=== PATIENT | male | born 1985 | race Caucasian/White ===

== ENCOUNTER 2016-09-16 02:17 | Emergency (ER) | payer OTHER ==
[2016-09-16 02:25] VITALS: BP 132/72
--- NOTE | 2016-09-16 02:47 | ED Physician Documentation ---
PD HPI FOCAL NEURO - Stated complaint Stated Complaint: DIZZINESS,NUMBNESS - Chief complaint Chief Complaint: General - History obtained from History obtained from: Patient - History of Present Illness Timing - onset: How many hours ago (1), Today Timing - details: Gradual onset (he had gotten out of work and was standing smoking cigarette and noted undulating numbness in left arm and both legs. He said he anxious about it and then started to feel that he was not able to get next breath well enough, so started breathing faster. He then started feeling dizzy/lightheaded, like he might pass out. He got ride to the ED. Improving enroute, though he says he still has some numbness feeling lower right leg. No feeling of weakness throughout the time.), Waxing and waning Severity of deficit: Moderate Weakness: No: Face, Arm, Hand, Leg, Foot, Right, Left, Other Numbness: Arm, Leg, Right, Left Associated symptoms: Headache (mild intermittent the past few weeks.) Contributing factors: negative: Anticoagulated, Vascular dz, Atrial fibrillation Similar symptoms before: No diagnosis (he says he has had occasional feeling of numbness left arm and left leg, not always together.) Recently seen: Not recently seen Review of Systems Constitutional: denies: Fever, Chills, Myalgias Nose: denies: Rhinorrhea / runny nose, Congestion Throat: denies: Sore throat Cardiac: denies: Chest pain / pressure, Palpitations Respiratory: denies: Dyspnea, Cough, Wheezing GI: denies: Nausea, Vomiting, Diarrhea Skin: denies: Rash, Lesions Neurologic: reports: Numbness. denies: Generalized weakness, Focal weakness, Near syncope, Confused, Altered mental status, Head injury PD PAST MEDICAL HISTORY - Past Medical History Past Medical History: Yes Cardiovascular: None Respiratory: None Neuro: None Endocrine/Autoimmune: Type 2 diabetes (had been on insulin when first Dx but off diabetes meds the past 8 months when had good labs in February without regular med use. ) Psych: Anxiety Other Past Medical History: born with one kidney only - Past Surgical History Past Surgical History: Yes General: Appendectomy - Present Medications Home Medications: Ambulatory Orders Medication Instructions Recorded Confirmed Potassium Chloride 10 meq PO DAILY #20 tablet.er 09/16/16 - Allergies Allergies/Adverse Reactions: Allergies Allergy/AdvReac Type Severity Reaction Status Date / Time cefaclor [From [facility]] Allergy Rash Verified 09/16/16 02:25 metformin Allergy Hives Verified 09/16/16 02:25 Penicillins Allergy Rash Verified 09/16/16 02:25 risperidone [From Risperdal] Allergy Unknown Verified 09/16/16 02:25 - Social History Does the pt smoke?: Yes Does the pt drink ETOH?: Yes Does the pt have substance abuse?: Yes Substance Use and Type: Marijuana - Immunizations Immunizations are current?: Yes - POLST Patient has POLST: No PD ED PE NORMAL - Vitals Vital signs reviewed: Yes - General General: 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, No acute distress, Well developed/nourished - HEENT HEENT: Atraumatic, Moist mucous membranes, Pharynx benign - Neck Neck: Supple, no meningeal sign, No adenopathy, No JVD, No bruit - Cardiac Cardiac: RRR, No murmur - Respiratory Respiratory: Clear bilaterally - Abdomen Abdomen: Soft, Non tender - Derm Derm: Normal color, Warm and dry - Extremities Extremities: No deformity, No tenderness to palpate, Normal ROM s pain, No edema , No calf tenderness / cord - Neuro Neuro: 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, 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, No motor deficit, No sensory deficit, Normal speech, Other - Psych Psych: Normal mood, Normal affect NIHSS - Level of Consciousness Level of consciousness: (0) Alert, Keenly responsive LOC Questions: (0) Answers both Q's correct LOC Commands: (0) Performs both correctly - Gaze Best Gaze: (0) Normal - Visual Visual: (0) No loss - Facial Palsy Facial Palsy: (0) Normal, symmetrical movement - Motor Arms (both separate) Motor Arm (right): (0) No drift Motor Arm (left): (0) No drift - Motor Legs (both separate) Motor Leg (right): (0) No drift Motor Leg (left): (0) No drift - Limb Ataxia Limb Ataxia: (0) Absent - Sensory Sensory: (0) Normal - Best Language Best Language: (0) No aphasia - Dysarthria Dysarthria: (0) Normal - Extinction and Inattention (formally neg Extinction and inattention: (0) No abnormality - Total Score/Results Total Score/Result: 0 Results - Vitals Vitals: Vital Signs - 24 hr 09/16/16 02:20 Temperature 37.3 C Heart Rate 63 Respiratory 20 Rate Blood Pressure 132/72 H O2 Saturation 99 Oxygen O2 Source Room air - Labs Labs: Laboratory Tests 09/16/16 09/16/16 09/16/16 02:31 03:24 03:24 WBC 8.5 RBC 4.55 L Hgb 14.5 Hct 43.1 MCV 94.9 H MCH 32.0 H MCHC 33.7 RDW 14.3 Plt Count 258 MPV 8.8 Neut # 5.6 Lymph # 1.9 [place] # 0.7 Eos # 0.2 Baso # 0.1 Absolute Nucleated RBC 0.00 Nucleated RBCs 0.0 Sodium 138 Potassium 3.3 L Chloride 103 Carbon Dioxide 26 Anion Gap 9.0 BUN 13 Creatinine 1.0 Estimated GFR (MDRD) 88 L Glucose 207 H POC Whole Bld Glucose 212 H Glycated Hemoglobin Estim Average Glucose Calcium 9.3 Magnesium 1.9 Total Bilirubin 0.4 AST 22 ALT 44 Alkaline Phosphatase 66 Total Protein 7.2 Albumin 4.4 Globulin 2.8 Albumin/Globulin Ratio 1.6 Lipase 25 09/16/16 03:24 WBC RBC Hgb Hct MCV MCH MCHC RDW Plt Count MPV Neut # Lymph # [place] # Eos # Baso # Absolute Nucleated RBC Nucleated RBCs Sodium Potassium Chloride Carbon Dioxide Anion Gap BUN Creatinine Estimated GFR (MDRD) Glucose POC Whole Bld Glucose Glycated Hemoglobin 7.0 H Estim Average Glucose 154 H Calcium Magnesium Total Bilirubin AST ALT Alkaline Phosphatase Total Protein Albumin Globulin Albumin/Globulin Ratio Lipase - Rads (name of study) head CT Radiology: Prelim report reviewed (no acute process seen) PD MEDICAL DECISION MAKING - ED course Complexity details: reviewed results, considered differential (his numbness in legs and left arm/hand along with dyspnea sound like hyperventilation episode. However he says he has had intermittent numbness left arm and leg, nonexertional. Did CT as screening, which was okay. His A1C is a bit high, but he says he will eat better (less good diet since moving few weeks ago too) and some exercise. I think the decision of back on meds or not can be deferred until obtains PMD locally. ), d/w patient Departure - Departure Disposition: 01 Home, Self Care Clinical Impression: Numbness Condition: Stable Record reviewed to determine appropriate education?: Yes Instructions: ED Paraesthesias, ED Exercises Lumbar Muscles Follow-Up: [facility] [Provider Group] [facility] [Provider Group] Prescriptions: Potassium Chloride 10 meq PO DAILY #20 tablet.er Comments: Your A1C is 7.0, which is a little high, but not terrible. Currently your Potassium is a bit low, which can associate with numbness and feeling of weakness as well. Add a potassium supplement daily for a week or two. Drink lots of fluids for good hydration. Your head CT appears normal. No signs of tumors, stroke, swelling. Some of the numbness in the leg could be from low back nerve impingement. Back stretching exercises might help. Follow up with PCP , call for an appt, and a new patient appt will likely take a month or two. Return if worse symptoms. Discharge Date/Time: 09/16/16 04:36
[2016-09-16 03:32] LABS: BASOPHILS # (AUTO) 0.1 10^3/uL (0.0-0.1); BASOPHILS % (AUTO) 0.8 %; EOSINOPHILS # (AUTO) 0.2 10^3/uL (0.0-0.7); EOSINOPHILS % (AUTO) 2.6 %; HCT - HEMATOCRIT 43.1 % (42.0-52.0); HGB - HEMOGLOBIN 14.5 g/dL (14.0-18.0); LYMPHOCYTES # (AUTO) 1.9 10^3/uL (1.5-3.5); LYMPHOCYTES % (AUTO) 21.9 %; MEAN CORPUSCULAR HGB CONC 33.7 g/dL (32.0-36.0); MEAN CORPUSCULAR VOLUME 94.9 fL (80.0-94.0); MEAN PLATELET VOLUME 8.8 fL (7.4-11.4); MONOCYTES # (AUTO) 0.7 10^3/uL (0.0-1.0); MONOCYTES % (AUTO) 8.6 %; NEUTROPHILS # (AUTO) 5.6 10^3/uL (1.5-6.6); NEUTROPHILS % (AUTO) 66.1 %; RED BLOOD COUNT 4.55 10^6/uL (4.70-6.10); RED CELL DISTRIBUTION WIDTH 14.3 % (12.0-15.0); UNCORRECTED WHITE BLOOD COUNT 8.5 x10^3/uL; WHITE BLOOD COUNT 8.5 x10^3/uL (4.8-10.8)
[2016-09-16 03:43] LABS: ALBUMIN/GLOBULIN RATIO 1.6 (1.0-2.2); BILIRUBIN,TOTAL 0.4 mg/dL (0.2-1.0); CALCIUM 9.3 mg/dL (8.5-10.3); MAGNESIUM 1.9 mg/dL (1.7-2.8); POTASSIUM 3.3 mmol/L (3.5-5.0); TOTAL PROTEIN 7.2 g/dL (6.7-8.2)
[2016-09-16 04:00] LABS: HEMOGLOBIN A1C 0.82 g/dL
--- NOTE | 2016-09-16 04:12 | CT Preliminary Report ---
Exam: CT Head W/O IMPRESSION: No acute or focal intracranial abnormality. [facility] SITE ID: [id number]
[2016-09-16] MEDS ORDERED: POTASSIUM BICARB 25 MEQ TABLET PO STA (04:15)
--- NOTE | 2016-09-16 04:15 | CT Report ---
EXAM: CT HEAD EXAM DATE: 09/16/2016 04:04 AM. CLINICAL HISTORY: Intermittent left arm/leg numbness. COMPARISON: None. TECHNIQUE: Multiaxial CT images were obtained from the foramen magnum to the vertex. IV contrast: Non e. Reformats: Coronal. In accordance with CT protocol optimization, one or more of the following dose reduction techniques w ere utilized for this exam: automated exposure control, adjustment of mA and/or KV based on patient s ize, or use of iterative reconstructive technique. FINDINGS: Parenchyma: No intraparenchymal hemorrhage. No evidence of mass, midline shift, or CT findings of inf arction. Miller-white differentiation is distinct. Extraaxial Spaces: Normal for age. No subdural or epidural collections identified. Ventricles: Asymmetry between the lateral ventricles, right is slightly larger than the left, felt to be within the range of normal. Sinuses: Mucosal thickening partially opacifies multiple ethmoid air cells bilaterally. Other visuali zed paranasal sinuses and mastoids are unremarkable. Bones: No evidence of fracture or calvarial defect. Other: None. IMPRESSION: No acute or focal intracranial abnormality. [facility] Referring Provider Line: [phone] SITE ID: [id number]
[2016-09-16] MEDS ORDERED: POTASSIUM BICARB 25 MEQ TABLET PO ONE (04:23)
== END 2016-09-16 04:36 | disposition home or self-care (01) ==
LOC: ED 02:17
DX: R20.0 Anesthesia of skin (principal); E11.8 Type 2 diabetes mellitus with unspecified complications; Z79.4 Long term (current) use of insulin; F17.200 Nicotine dependence, unspecified, uncomplicated; E87.6 Hypokalemia
CPT/HCPCS: 36415; 70450; 80053; 83036; 83690; 83735; 85025; 99283; 99284; A9270

== ENCOUNTER 2016-10-31 18:55 | Emergency (ER) | payer OTHER ==
[2016-10-31] MEDS ORDERED: predniSONE 20 MG TABLET PO STA (20:30)
[2016-10-31] MEDS ORDERED: IPRATROPIUM/ALBUTEROL 3 ML NEB INH STA (20:30)
--- NOTE | 2016-10-31 20:39 | XRAY Preliminary Report ---
Exam: XR Chest 2 View PA/LAT IMPRESSION: Normal 2-view chest radiography. [facility] SITE ID: [id number]
--- NOTE | 2016-10-31 20:41 | XRAY Report ---
EXAM: CHEST RADIOGRAPHY EXAM DATE: 10/31/2016 08:23 PM. CLINICAL HISTORY: Cough. Chest tightness for 3 days. COMPARISON: None. TECHNIQUE: 2 views. FINDINGS: Lungs/Pleura: No focal opacities evident. No pleural effusion. No pneumothorax. Normal volumes. Mediastinum: Heart and mediastinal contours are unremarkable. Other: No bony abnormality identified. IMPRESSION: Normal 2-view chest radiography. [facility] Referring Provider Line: [phone] SITE ID: [id number]
[2016-10-31] MEDS ORDERED: IPRATROPIUM/ALBUTEROL 3 ML NEB INH ONE (20:42)
[2016-10-31] MEDS ORDERED: predniSONE 20 MG TABLET ONE (20:50)
--- NOTE | 2016-10-31 21:01 | ED Physician Documentation ---
PD HPI URI - Stated complaint Stated Complaint: SOA - Chief complaint Chief Complaint: Resp - History obtained from History obtained from: Patient - History of Present Illness Timing - onset: Yesterday Timing duration: Days (2) Timing details: Gradual onset Pain level max: 5 Pain level now: 5 Associated symptoms: Nasal congestion, Rhinorrhea, Dry cough, Dyspnea, Other ( wheezing). No: Fever, Chills Contributing factors: Sick contact Improves by: Rest Worsened by: Activity, Breathing Similar symptoms before: Has not had sx before Recently seen: Not recently seen Review of Systems Constitutional: denies: Fever, Chills Throat: denies: Sore throat Respiratory: reports: Cough, Wheezing Skin: denies: Rash Musculoskeletal: denies: Neck pain, Back pain Neurologic: denies: Headache PD PAST MEDICAL HISTORY - Past Medical History Cardiovascular: None Respiratory: None Neuro: None Endocrine/Autoimmune: Type 2 diabetes Psych: Anxiety Other Past Medical History: born with one kidney - Past Surgical History Past Surgical History: Yes General: Appendectomy - Present Medications Home Medications: Ambulatory Orders Medication Instructions Recorded Confirmed Albuterol Sulf [Ventolin Hfa 2 puffs INH Q4HR PRN #1 inhaler 10/31/16 Inhaler] Prednisone 40 mg PO DAILY #10 tablet 10/31/16 - Allergies Allergies/Adverse Reactions: Allergies Allergy/AdvReac Type Severity Reaction Status Date / Time cefaclor [From Ceclor] Allergy Rash Verified 10/31/16 19:15 metformin Allergy Hives Verified 10/31/16 19:15 Penicillins Allergy Rash Verified 10/31/16 19:15 risperidone [From Risperdal] Allergy Unknown Verified 10/31/16 19:15 - Social History Does the pt smoke?: Yes Smoking Status: Current every day smoker Does the pt drink ETOH?: Yes Does the pt have substance abuse?: No - Immunizations Immunizations are current?: Yes - POLST Patient has POLST: No PD ED PE NORMAL - Vitals Vital signs reviewed: Yes - General General: 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, No acute distress - HEENT HEENT: Ears normal, Moist mucous membranes, Pharynx benign - Neck Neck: Supple, no meningeal sign - Cardiac Cardiac: RRR, Strong equal pulses - Respiratory Respiratory: No respiratory distress, Other (Mild decreased breath sounds bilaterally with occasional wheeze) - Abdomen Abdomen: Soft, Non tender, Non distended - Derm Derm: Warm and dry - Extremities Extremities: No edema, No calf tenderness / cord - Neuro Neuro: 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 - Psych Psych: Normal mood, Normal affect Results - Vitals Vitals: Oxygen O2 Source Room air - Rads (name of study) cxr Radiology: Prelim report reviewed, EMP read contemporaneously, See rad report ( Normal 2-view chest radiography. ) PD MEDICAL DECISION MAKING - ED course Complexity details: reviewed results, re-evaluated patient, considered differential, d/w patient ED course: Patient is a 31-year-old male who presents to the emergency department what appears to be a viral upper respiratory infection with wheezing. Feels better after nebulizer treatment. Will place on steroids and albuterol for home. No pneumonia. Will hold antibiotics. No fevers. No hypoxia. No respiratory distress. Patient counseled to quit smoking. Patient counseled regarding signs and symptoms for which I believe and urgent re-evaluation would be necessary. Patient with good understanding of and agreement to plan and is comfortable going home at this time This document was made in part using voice recognition software. While efforts are made to proofread this document, sound alike and grammatical errors may occur. Departure - Departure Disposition: 01 Home, Self Care Clinical Impression: Viral URI Condition: Good Instructions: ED URI Viral W Wheezing Follow-Up: your,doctor in 1 week [Other] Prescriptions: Albuterol Sulf [Ventolin Hfa Inhaler] 2 puffs INH Q4HR PRN #1 inhaler PRN Reason: Wheezing Prednisone 40 mg PO DAILY #10 tablet Comments: Return if you worsen. Use the inhaler as needed. Your blood pressure was elevated today on check in to the emergency department. This does not mean that you have hypertension, it is a common phenomenon to check into the emergency department and have elevated blood pressure. I recommend that you see your primary care physician within the week to have it rechecked when you're feeling better. Discharge Date/Time: 10/31/16 21:22
[2016-10-31 21:20] VITALS: BP 115/73
== END 2016-10-31 21:22 | disposition home or self-care (01) ==
LOC: ED 18:55
DX: J06.9 Acute upper respiratory infection, unspecified (principal); B97.89 Other viral agents as the cause of diseases classified elsewhere; R03.0 Elevated blood-pressure reading, without diagnosis of hypertension; E11.9 Type 2 diabetes mellitus without complications; Q60.0 Renal agenesis, unilateral; F17.200 Nicotine dependence, unspecified, uncomplicated
CPT/HCPCS: 71020; 94640; 94664; 99283; J7512; J7620

== ENCOUNTER 2016-11-06 02:33 | Outpatient (CLI) | payer OTHER | END 2016-11-06 02:34 | disposition critical access hospital (66) | LOC: EMS 02:33 | PROVIDERS: ATTEND Surgery | DX: R73.09 Other abnormal glucose (principal); R51 Headache; R25.2 Cramp and spasm | CPT/HCPCS: A0425; A0427 ==

== ENCOUNTER 2016-11-06 02:47 | Emergency (ER) | payer OTHER ==
--- NOTE | 2016-11-06 05:09 | ED Physician Documentation ---
History of Present Illness - Stated complaint Stated Complaint: ALVARES/FLUSH - Chief complaint Chief Complaint: General - History obtained from History obtained from: Patient - History of Present Illness Timing: Enter time (21:00), Today Pain level now: 0 Improved by: nothing Worsened by: no exacerbating factors - Additonal information Additional information: patient complains of chest pressure, feeling flush, generalize headache call on set 9 PM tonight while at home cooking dinner. Patient says this felt like his previous anxiety exacerbations, and that symptoms have completely resolved. Review of Systems Constitutional: reports: Reviewed and negative Cardiac: reports: Chest pain / pressure. denies: Palpitations Respiratory: reports: Reviewed and negative GI: reports: Reviewed and negative Musculoskeletal: reports: Reviewed and negative Neurologic: reports: Headache Psychiatric: reports: Anxiety PD PAST MEDICAL HISTORY - Past Medical History Past Medical History: Yes Cardiovascular: None Respiratory: None Neuro: None Endocrine/Autoimmune: Type 2 diabetes Psych: Anxiety - Past Surgical History Past Surgical History: Yes General: Appendectomy - Present Medications Home Medications: Ambulatory Orders Medication Instructions Recorded Confirmed Albuterol Sulf [Ventolin Hfa 2 puffs INH Q4HR PRN #1 inhaler 10/31/16 Inhaler] Prednisone 40 mg PO DAILY #10 tablet 10/31/16 LORazepam [Ativan] 0.5 - 1 mg PO Q6H PRN #20 tablet 11/06/16 - Allergies Allergies/Adverse Reactions: Allergies Allergy/AdvReac Type Severity Reaction Status Date / Time cefaclor [From Ceclor] Allergy Rash Verified 10/31/16 19:15 metformin Allergy Hives Verified 10/31/16 19:15 Penicillins Allergy Rash Verified 10/31/16 19:15 risperidone [From Risperdal] Allergy Unknown Verified 10/31/16 19:15 - Social History Does the pt smoke?: Yes Smoking Status: Current every day smoker Does the pt drink ETOH?: Yes Does the pt have substance abuse?: No - Immunizations Immunizations are current?: Yes - POLST Patient has POLST: No PD ED PE NORMAL - Vitals Vital signs reviewed: Yes - General General: 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, No acute distress, Well developed/nourished - HEENT HEENT: PERRL, EOMI - Cardiac Cardiac: RRR, No murmur - Respiratory Respiratory: No respiratory distress, Clear bilaterally - Neuro Neuro: 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 - Psych Psych: Normal mood, Normal affect Results - Vitals Vitals: Oxygen O2 Source Room air - Labs Labs: Laboratory Tests 11/06/16 11/06/16 02:57 05:32 POC Whole Bld Glucose 291 H 231 H PD MEDICAL DECISION MAKING - ED course Complexity details: considered differential, d/w patient Departure - Departure Disposition: 01 Home, Self Care Clinical Impression: Anxiety Condition: Good Instructions: ED Panic Attack Follow-Up: [facility] [Provider Group] Prescriptions: LORazepam [Ativan] 0.5 - 1 mg PO Q6H PRN #20 tablet PRN Reason: Anxiety Discharge Date/Time: 11/06/16 05:43
[2016-11-06 05:25] VITALS: BP 115/71
== END 2016-11-06 05:43 | disposition home or self-care (01) ==
LOC: EDUNIT# → ED 02:47
DX: F41.0 Panic disorder [episodic paroxysmal anxiety] (principal); F41.9 Anxiety disorder, unspecified; Z79.51 Long term (current) use of inhaled steroids; Z79.52 Long term (current) use of systemic steroids; F17.200 Nicotine dependence, unspecified, uncomplicated; E11.9 Type 2 diabetes mellitus without complications
CPT/HCPCS: 99283

== ENCOUNTER 2016-11-10 01:36 | Outpatient (CLI) | payer MEDICAID | END 2016-11-10 01:37 | disposition critical access hospital (66) | LOC: EMS 01:36 | PROVIDERS: ATTEND Surgery | DX: R06.02 Shortness of breath (principal); R07.89 Other chest pain | CPT/HCPCS: A0425; A0429 ==

== ENCOUNTER 2016-11-10 01:51 | Emergency (ER) | payer MEDICAID ==
[2016-11-10] MEDS ORDERED: ALBUTEROL NEB 2.5 MG/3 ML INH STA (01:59)
[2016-11-10] MEDS ORDERED: ALBUTEROL NEB 2.5 MG/3 ML INH ONE (02:20)
--- NOTE | 2016-11-10 02:37 | XRAY Preliminary Report ---
Exam: XR Chest 2 View PA/LAT IMPRESSION: 1. No acute abnormality seen in the chest. [facility] SITE ID: [id number]
--- NOTE | 2016-11-10 02:40 | XRAY Report ---
EXAM: CHEST RADIOGRAPHY EXAM DATE: 11/10/2016 02:29 AM. CLINICAL HISTORY: Shortness of breath, chest pressure. COMPARISON: 10/31/2016. TECHNIQUE: 2 views. FINDINGS: Lungs/Pleura: No alveolar consolidation or pleural effusion. No pneumothorax. Mediastinum: Heart and mediastinal contours are unremarkable. Other: None. IMPRESSION: 1. No acute abnormality seen in the chest. [facility] Referring Provider Line: [phone] SITE ID: [id number]
--- NOTE | 2016-11-10 03:12 | ED Physician Documentation ---
PD HPI DYSPNEA - Stated complaint Stated Complaint: SOA - Chief complaint Chief Complaint: Resp - History obtained from History obtained from: Patient, Family - History of Present Illness Timing - onset: Today Timing - onset during: Rest Timing - details: Abrupt onset, Now resolved Inciting event(s): URI. No: Out of meds Improved by: Rest Associated symptoms: Cough, Chest pain / discomfort, Anxiety. No: Fever, Wheezing Similar symptoms before: Work up / diagnostics, Treatment Recently seen: Emergency Dept - Additional information Additional information: Patient is a 31 year old male with a history of borderline diabetes and anxiety who is presenting to the emergency department for shortness of breath. Patient was recently diagnosed with a uri and just finished a course of steroids. Patient states that tonight at work he felt short of breath and had some chest pressure so he called ems. Upon initial evaluation in the emergency department patient was awake, alert and well appearing in no acute distress. Review of Systems Constitutional: denies: Fever, Chills Eyes: denies: Decreased vision, Photophobia Ears: denies: Ear pain, Drainage/discharge Nose: reports: Congestion, Sinus pressure / pain. denies: Rhinorrhea / runny nose Throat: denies: Dental pain / toothache, Sore throat Cardiac: reports: Chest pain / pressure. denies: Palpitations, Pedal edema Respiratory: reports: Dyspnea, Cough. denies: Wheezing GI: denies: Nausea, Vomiting : denies: Dysuria, Frequency Musculoskeletal: denies: Neck pain, Back pain, Extremity swelling Neurologic: denies: Generalized weakness, Focal weakness, Headache Immunocompromised: denies: Immunocompromised PD PAST MEDICAL HISTORY - Past Medical History Past Medical History: Yes Cardiovascular: None Respiratory: None Neuro: None Endocrine/Autoimmune: Type 2 diabetes Psych: Anxiety - Past Surgical History Past Surgical History: Yes General: Appendectomy - Present Medications Home Medications: Ambulatory Orders Medication Instructions Recorded Confirmed No Known Home Medications [No 11/10/16 11/10/16 Known Home Medications] - Allergies Allergies/Adverse Reactions: Allergies Allergy/AdvReac Type Severity Reaction Status Date / Time cefaclor [From Ceclor] Allergy Rash Verified 11/10/16 01:58 metformin Allergy Hives Verified 11/10/16 01:58 Penicillins Allergy Rash Verified 11/10/16 01:58 risperidone [From Risperdal] Allergy Unknown Verified 11/10/16 01:58 - Social History Does the pt smoke?: Yes Smoking Status: Current every day smoker Does the pt drink ETOH?: Yes Does the pt have substance abuse?: No - Immunizations Immunizations are current?: Yes - POLST Patient has POLST: No PD ED PE NORMAL - Vitals Vital signs reviewed: Yes - General General: 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, No acute distress, Well developed/nourished - HEENT HEENT: Atraumatic, PERRL, Ears normal, Moist mucous membranes, Pharynx benign, Dentition benign - Neck Neck: Supple, no meningeal sign, No JVD - Cardiac Cardiac: RRR, No murmur, No rub - Respiratory Respiratory: No respiratory distress, Clear bilaterally - Abdomen Abdomen: Soft, Non tender, Non distended - Derm Derm: Normal color, Warm and dry, No rash - Extremities Extremities: No deformity, No tenderness to palpate, Normal ROM s pain, No edema - Neuro Neuro: 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, No motor deficit, No sensory deficit, Normal speech - Psych Psych: Normal mood, Normal affect Results - Vitals Vitals: Vital Signs - 24 hr 11/10/16 11/10/16 11/10/16 01:54 02:15 03:23 Temperature 36.3 C L Heart Rate 70 55 L 64 Respiratory 18 16 18 Rate Blood Pressure 126/62 113/62 O2 Saturation 96 97 Oxygen O2 Source Room air - EKG (time done) 0228 Rate: Rate (enter#) (61) Rhythm: NSR [place]: Normal Intervals: Normal ND Ischemia: Normal ST segments Compare to prior EKG: Old EKG unavailable - Labs Labs: Laboratory Tests 11/10/16 02:14 Troponin I < 0.04 - Rads (name of study) chest x-ray Radiology: Final report received (no acute abnormality) PD MEDICAL DECISION MAKING - ED course Complexity details: reviewed old records, reviewed results, re-evaluated patient , considered differential, d/w patient, d/w family ED course: Patient was seen and examined at bedside. ekg was performed and was within normal limits. chest x-ray also showed no abnormalities. Patient was treated with albuterol with moderate relief. patient troponin was negative. Patient had negative results for HEART, PERC and KEATON scores. Patient required no further work up and was stable for discharge with outpatient follow up. Departure - Departure Disposition: 01 Home, Self Care Clinical Impression: Viral URI Condition: Good Instructions: ED Bronchitis Asthmatic Follow-Up: primary,care provider [Other] - Within 1 week Comments: Your diagnostics today were within normal limits. there were no acute abnormalities on your diagnostics. Your symptoms are likely viral related and might have a stress component. You should follow up with your pmd if your symptoms persist. You may return to the emergency department at any time for new, worsening or uncontrollable symptoms. Discharge Date/Time: 11/10/16 03:24
[2016-11-10 03:24] VITALS: BP 113/62
== END 2016-11-10 03:24 | disposition home or self-care (01) ==
LOC: EDUNIT# → ED 01:51
DX: J06.9 Acute upper respiratory infection, unspecified (principal); B97.89 Other viral agents as the cause of diseases classified elsewhere; F41.9 Anxiety disorder, unspecified; E11.9 Type 2 diabetes mellitus without complications; F17.200 Nicotine dependence, unspecified, uncomplicated
CPT/HCPCS: 36415; 71020; 84484; 93005; 94640; 99283; J7613

== ENCOUNTER 2017-01-13 10:30 | Emergency (ER) | payer MEDICAID ==
[2017-01-13 10:50] VITALS: BP 151/78
--- NOTE | 2017-01-13 12:55 | ED Physician Documentation ---
PD HPI URI - Stated complaint Stated Complaint: LEFT EAR PX - Chief complaint Chief Complaint: Heent - History obtained from History obtained from: Patient - History of Present Illness Timing - onset: How many weeks ago (1) Timing duration: Weeks (1) Timing details: Abrupt onset (he was at firing range and noted some blood from ear afterward. Seen by PMD and given Rx for abx (sounds like Amox), and was improved then started hurting again today.) Associated symptoms: No: Fever, Nasal congestion, Rhinorrhea, Swollen nodes Contributing factors: No: Sick contact, Travel Similar symptoms before: Has not had sx before Recently seen: Clinic Review of Systems Constitutional: denies: Fever, Chills Ears: reports: Loss of hearing (lessened), Ear pain, Drainage/discharge (left). denies: Tinnitus/ringing Nose: denies: Rhinorrhea / runny nose, Congestion Throat: denies: Sore throat Respiratory: denies: Dyspnea, Cough, Wheezing GI: denies: Nausea, Vomiting Skin: denies: Rash PD PAST MEDICAL HISTORY - Past Medical History Past Medical History: Yes Cardiovascular: None Respiratory: None Neuro: None Endocrine/Autoimmune: Type 2 diabetes Psych: Anxiety Other Past Medical History: only has one kidney - Past Surgical History Past Surgical History: Yes General: Appendectomy - Present Medications Home Medications: Ambulatory Orders Medication Instructions Recorded Confirmed HYDROcod/ACETAM 5/325 [[place] 5/325] 1 tab PO Q6H PRN #15 tablet 01/13/17 Neomycin/Polymyx/Hc Otic Drops 4 drops OT QID #1 bottle 01/13/17 [Cortisporin Ear Susp] Sulfamethox/Trimeth 800/160 1 each PO BID #14 tablet 01/13/17 [Bactrim Ds 800/160] - Allergies Allergies/Adverse Reactions: Allergies Allergy/AdvReac Type Severity Reaction Status Date / Time cefaclor [From Ceclor] Allergy Rash Verified 01/13/17 10:51 metformin Allergy Hives Verified 01/13/17 10:51 Penicillins Allergy Rash Verified 01/13/17 10:51 risperidone [From Risperdal] Allergy Unknown Verified 01/13/17 10:51 - Social History Does the pt smoke?: Yes Smoking Status: Current every day smoker Does the pt drink ETOH?: Yes ETOH Use: Beer, Liquor Does the pt have substance abuse?: No - Immunizations Immunizations are current?: Yes - POLST Patient has POLST: No PD ED PE NORMAL - Vitals Vital signs reviewed: Yes - General General: 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, No acute distress, Well developed/nourished - HEENT HEENT: Moist mucous membranes, Pharynx benign. No: Ears normal (right is okay. Left shows redness and swelling of canal with some exudate and redness of tissue of canal and some of outer ear. TM appears okay without perf. ) Results - Vitals Vitals: Oxygen O2 Source Room air - Labs Labs: Laboratory Tests 01/13/17 11:00 POC Whole Bld Glucose 190 H PD MEDICAL DECISION MAKING - ED course Complexity details: considered differential (does appear OE with some tissue cellulitis. Had gotten Amox for ear first treatment, and presume this is more likely staph from ear plugs so will treat with different abx. ), d/w patient Departure - Departure Disposition: 01 Home, Self Care Clinical Impression: Cellulitis of left ear canal Otitis externa Qualifiers: Otitis externa type: swimmer's ear Chronicity: acute Laterality: left Qualified Code(s): H60.332 - Swimmer's ear, left ear Condition: Stable Record reviewed to determine appropriate education?: Yes Instructions: ED Infec Skin Cellulitis, ED Otitis Externa Prescriptions: HYDROcod/ACETAM 5/325 [[place] 5/325] 1 tab PO Q6H PRN #15 tablet PRN Reason: Pain Neomycin/Polymyx/Hc Otic Drops [Cortisporin Ear Susp] 4 drops OT QID #1 bottle Sulfamethox/Trimeth 800/160 [Bactrim Ds 800/160] 1 each PO BID #14 tablet Comments: Tylenol or ibuprofen if needed for pain. Add hydrocodone if needed. Use the Cortisporin antibiotic eardrops 4 times a day in both ears for a day or so and then just the left ear. Use the Bactrim antibiotic twice daily for a week. Recheck if not improved over the next 2-3 days and return sooner if worsening. Discharge Date/Time: 01/13/17 13:17
[2017-01-13] MEDS ORDERED: SULFAMETH/TRIMETH DS 800/160 MG TABLET PO STA (13:02)
[2017-01-13] MEDS ORDERED: IBUPROFEN 600 MG TABLET PO STA (13:02)
[2017-01-13] MEDS ORDERED: HYDROcod/ACETAM 5/325 MG TABLET PO STA (13:02)
[2017-01-13] MEDS ORDERED: SULFAMETH/TRIMETH DS 800/160 MG TABLET PO ONE (13:14)
[2017-01-13] MEDS ORDERED: IBUPROFEN 600 MG TABLET PO ONE (13:15)
[2017-01-13] MEDS ORDERED: HYDROcod/ACETAM 5/325 MG TABLET ONE (13:15)
== END 2017-01-13 13:17 | disposition home or self-care (01) ==
LOC: ED 10:30
DX: H60.12 Cellulitis of left external ear (principal); H60.332 Swimmer's ear, left ear; E11.9 Type 2 diabetes mellitus without complications; Z90.5 Acquired absence of kidney; F17.200 Nicotine dependence, unspecified, uncomplicated
CPT/HCPCS: 99283; A9270

== ENCOUNTER 2017-02-15 19:03 | Emergency (ER) | payer MEDICAID ==
[2017-02-15] MEDS ORDERED: INSULIN REGULAR HUMAN 100 UNIT/1 ML 10 ML MDV SUBQ STA (19:30)
--- NOTE | 2017-02-15 19:30 | ED Physician Documentation ---
History of Present Illness - Stated complaint Stated Complaint: DIABETIC ISSUES - Chief complaint Chief Complaint: General - History obtained from History obtained from: Patient - Additonal information Additional information: He was diagnosed with DMII about 1.5 yrs ago. He had a bad reaction to metformin. He was on trecyba and humalog but has not been able to see a PMD since moving to the area and needs refills. His FSBSs have been high up to upper 200s lately. Review of Systems Constitutional: denies: Fever, Chills GI: denies: Nausea, Vomiting, Diarrhea Skin: reports: Reviewed and negative PD PAST MEDICAL HISTORY - Past Medical History Cardiovascular: None Respiratory: None Neuro: None Endocrine/Autoimmune: Type 2 diabetes Psych: Anxiety - Past Surgical History Past Surgical History: Yes General: Appendectomy - Present Medications Home Medications: Ambulatory Orders Medication Instructions Recorded Confirmed Insulin Degludec [Tresiba 10 unit SQ QPM #1 insuln.pen 02/15/17 Flextouch U-100] Insulin Lispro [Humalog Kwikpen 2 - 4 unit SQ AC #1 insuln.pen 02/15/17 U-100] - Allergies Allergies/Adverse Reactions: Allergies Allergy/AdvReac Type Severity Reaction Status Date / Time cefaclor [From Ceclor] Allergy Rash Verified 02/15/17 19:13 metformin Allergy Hives Verified 02/15/17 19:13 Penicillins Allergy Rash Verified 02/15/17 19:13 risperidone [From Risperdal] Allergy Unknown Verified 02/15/17 19:13 - Social History Does the pt smoke?: Yes Smoking Status: Current every day smoker Does the pt drink ETOH?: Yes Does the pt have substance abuse?: No - Immunizations Immunizations are current?: Yes - POLST Patient has POLST: No PD ED PE NORMAL - Vitals Vital signs reviewed: Yes - General General: 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, No acute distress - HEENT HEENT: PERRL, EOMI - Neuro 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: 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, 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 He was given refills of his insulin. His blood sugar here was in the 170s and as such no further workup is necessitated emergently. Departure - Departure Disposition: Home, Self Care Clinical Impression: Diabetes Qualifiers: Diabetes mellitus type: type 2 Diabetes mellitus complication status: with hyperglycemia Diabetes mellitus snf insulin use: with long term care administrator use Qualified Code(s): E11.65 - Type 2 diabetes mellitus with hyperglycemia Condition: Good Record reviewed to determine appropriate education?: Yes Instructions: Hyperglycemia, Diabetes Type 2 Coping Follow-Up: [facility] [Provider Group] Prescriptions: Insulin Degludec [Tresiba Flextouch U-100] 10 unit SQ QPM #1 insuln.pen Insulin Lispro [Humalog Kwikpen U-100] 2 - 4 unit SQ AC #1 insuln.pen Comments: Your blood pressure was high tonight, potentially due to anxiety. Recheck when you see your new doctor.
[2017-02-15 19:50] VITALS: BP 154/100
== END 2017-02-15 19:49 | disposition home or self-care (01) ==
LOC: ED 19:03
DX: E11.65 Type 2 diabetes mellitus with hyperglycemia (principal); F17.200 Nicotine dependence, unspecified, uncomplicated; Z79.4 Long term (current) use of insulin
CPT/HCPCS: 99283

== ENCOUNTER 2017-05-25 11:57 | Emergency (ER) | payer MEDICAID ==
--- NOTE | 2017-05-25 13:11 | ED Physician Documentation ---
PD HPI DYSPNEA - Stated complaint Stated Complaint: DIZZINESS/HEAVY - Chief complaint Chief Complaint: General - History obtained from History obtained from: Patient - History of Present Illness Timing - onset: Last night Timing - onset during: Light activity (mainly with turning head side to side) Timing - duration: Days (1) Timing - details: Gradual onset, Waxing and waning Inciting event(s): URI (has had some sinus congestion and nasal discharge for a week or so. Having some decreased hearing in right ear particularly.). No: Out of meds Worsened by: Other (turning head and bending over.) Similar symptoms before: Has not had sx before Recently seen: Not recently seen Review of Systems Constitutional: denies: Fever, Chills Ears: reports: Loss of hearing, Tinnitus/ringing. denies: Drainage/discharge Nose: reports: Rhinorrhea / runny nose, Congestion, Sinus pressure / pain Throat: denies: Sore throat Cardiac: reports: Chest pain / pressure (intermittently today feeling like anxiety) Respiratory: reports: Dyspnea. denies: Cough GI: reports: Nausea. denies: Vomiting, Diarrhea : reports: Frequency. denies: Dysuria PD PAST MEDICAL HISTORY - Past Medical History Past Medical History: Yes Cardiovascular: None Respiratory: None Neuro: None Endocrine/Autoimmune: Type 2 diabetes Psych: Anxiety - Past Surgical History Past Surgical History: Yes General: Appendectomy - Present Medications Home Medications: Ambulatory Orders Medication Instructions Recorded Confirmed Insulin Degludec [Tresiba 10 unit SQ QPM #1 insuln.pen 02/15/17 Flextouch U-100] Insulin Lispro [Humalog Kwikpen 2 - 4 unit SQ AC #1 insuln.pen 02/15/17 U-100] Cetirizine [ZyrTEC] 10 mg PO DAILY #20 tablet 05/25/17 Doxycycline Monohydrate 100 mg PO BID #14 tablet 05/25/17 Meclizine [Antivert] 12.5 mg PO Q6H PRN #25 tablet 05/25/17 - Allergies Allergies/Adverse Reactions: Allergies Allergy/AdvReac Type Severity Reaction Status Date / Time cefaclor [From Ceclor] Allergy Rash Verified 02/15/17 19:13 metformin Allergy Hives Verified 02/15/17 19:13 Penicillins Allergy Rash Verified 02/15/17 19:13 risperidone [From Risperdal] Allergy Unknown Verified 02/15/17 19:13 - Social History Does the pt smoke?: Yes Smoking Status: Current every day smoker Does the pt drink ETOH?: Yes Does the pt have substance abuse?: No - Immunizations Immunizations are current?: Yes - POLST Patient has POLST: No PD ED PE NORMAL - Vitals Vital signs reviewed: Yes - General General: 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, No acute distress, Well developed/nourished - HEENT HEENT: Pharynx benign - Neck Neck: Supple, no meningeal sign, No adenopathy - Cardiac Cardiac: RRR, No murmur - Respiratory Respiratory: Clear bilaterally - Abdomen Abdomen: Soft, Non tender - Derm Derm: Normal color, Warm and dry - Extremities Extremities: Normal ROM s pain, No edema, No calf tenderness / cord - Neuro Neuro: 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, No motor deficit, Normal speech Results - Vitals Vitals: Oxygen O2 Source Room air - EKG (time done) 12:07 Rate: Rate (enter#) (88) Rhythm: NSR [place]: Normal Intervals: Normal HI QRS: Normal Ischemia: Normal ST segments. No: ST elevation c/w ischemia, ST depression - Labs Labs: Laboratory Tests 05/25/17 05/25/17 05/25/17 12:05 13:39 13:39 VBG pH 7.400 VBG pCO2 40.1 L VBG pO2 48.8 H VBG HCO3 24.3 VBG Total CO2 25.5 VBG O2 Saturation 87.9 H VBG Base Excess -0.4 Sodium 136 Potassium 4.0 Chloride 103 Carbon Dioxide 27 Anion Gap 6.0 BUN 15 Creatinine 0.9 Estimated GFR (MDRD) 98 Glucose 209 H POC Whole Bld Glucose 229 H Calcium 9.2 Magnesium 2.0 Total Bilirubin 0.4 AST 24 ALT 36 Alkaline Phosphatase 65 Total Protein 7.3 Albumin 4.4 Globulin 2.9 Albumin/Globulin Ratio 1.5 Lipase 13 L PD MEDICAL DECISION MAKING - ED course Complexity details: considered differential (sounds like vertigo and positional , with symptoms c/w sinusitis. ), d/w patient Departure - Departure Disposition: 01 Home, Self Care Clinical Impression: Vertigo Sinusitis, acute Qualifiers: Sinusitis location: frontal Recurrence: non-recurrent Qualified Code(s): J01.10 - Acute frontal sinusitis, unspecified Condition: Stable Record reviewed to determine appropriate education?: Yes Instructions: ED Sinusitis Abx Tx, ED Vertigo Unspecified Prescriptions: Cetirizine [ZyrTEC] 10 mg PO DAILY #20 tablet Doxycycline Monohydrate 100 mg PO BID #14 tablet Meclizine [Antivert] 12.5 mg PO Q6H PRN #25 tablet PRN Reason: Vertigo Comments: Continue usual medications. Be sure to take your insulins regularly. The dizziness sounds like inner ear dysfunction related to the sinus problem. This sounds like a sinus infection. Doxycycline twice a day for a week for the infection. Cetirizine daily for a week or 2 to help with congestion of the sinuses. Meclizine every 6-8 hours if needed for dizziness. Recheck if not improved over the next few days. Discharge Date/Time: 05/25/17 14:51
[2017-05-25] MEDS ORDERED: MECLIZINE 12.5 MG TABLET PO STA (13:27)
[2017-05-25 13:44] LABS: VBG BASE EXCESS -0.4 mmol/L (-2 - +2); VBG PCO2 40.1 mmHg (41-51); VBG PH 7.4 (7.31-7.41); VBG PO2 48.8 mmHg (25-47); VBG TOTAL CO2 25.5 mmol/L (24-29)
[2017-05-25 13:56] LABS: ALBUMIN 4.4 g/dL (3.2-5.5); ALBUMIN/GLOBULIN RATIO 1.5 (1.0-2.2); BILIRUBIN,TOTAL 0.4 mg/dL (0.2-1.0); CALCIUM 9.2 mg/dL (8.5-10.3); CREATININE 0.9 mg/dL (0.6-1.2); TOTAL PROTEIN 7.3 g/dL (6.7-8.2)
[2017-05-25] MEDS ORDERED: DOXYCYCLINE 100 MG TABLET PO STA (14:10)
[2017-05-25 14:18] VITALS: BP 119/67
== END 2017-05-25 14:51 | disposition home or self-care (01) ==
LOC: ED 11:57
DX: J01.10 Acute frontal sinusitis, unspecified (principal); R42 Dizziness and giddiness; E11.9 Type 2 diabetes mellitus without complications; Z79.4 Long term (current) use of insulin; F17.200 Nicotine dependence, unspecified, uncomplicated
CPT/HCPCS: 36415; 80053; 82803; 83690; 83735; 93005; 99283; 99284; A9270

== ENCOUNTER 2017-05-30 18:21 | Emergency (ER) | payer OTHER, MEDICAID ==
[2017-05-30 18:30] VITALS: BP 138/77
--- NOTE | 2017-05-30 20:05 | ED Physician Documentation ---
PD HPI LOWER EXT INJURY - Stated complaint Stated Complaint: L LEG PX - Chief complaint Chief Complaint: Ext Problem - History obtained from History obtained from: Patient - History of Present Illness PD HPI LOW EXT INJURY LOCATION: Left, Knee, Lower leg Type of injury: Blunt / blow (he was mowing and ran into a hydrant with his knee , direct blow. Pain initially and then worse today when awoke.) Where injury occurred: Work Timing - onset: Yesterday Timing - details: Abrupt onset, Still present (worsened this morning) Worsened by: Moving (extending at the knee), Palpating Associated symptoms: No: Weakness, Numbness, Swelling Similar symptoms before: Has not had sx before Review of Systems Constitutional: denies: Fever, Chills Nose: denies: Rhinorrhea / runny nose, Congestion Throat: denies: Sore throat GI: denies: Vomiting, Diarrhea Skin: denies: Abrasion (s), Laceration (s) Neurologic: denies: Focal weakness, Numbness PD PAST MEDICAL HISTORY - Past Medical History Cardiovascular: None Respiratory: None Neuro: None Endocrine/Autoimmune: Type 2 diabetes Psych: Anxiety - Past Surgical History Past Surgical History: Yes General: Appendectomy - Present Medications Home Medications: Ambulatory Orders Medication Instructions Recorded Confirmed Insulin Degludec [Tresiba 10 unit SQ QPM #1 insuln.pen 02/15/17 05/30/17 Flextouch U-100] Insulin Lispro [Humalog Kwikpen 2 - 4 unit SQ AC #1 insuln.pen 02/15/17 05/30/17 U-100] Cetirizine [ZyrTEC] 10 mg PO DAILY #20 tablet 05/25/17 05/30/17 Doxycycline Monohydrate 100 mg PO BID #14 tablet 05/25/17 05/30/17 Meclizine [Antivert] 12.5 mg PO Q6H PRN #25 tablet 05/25/17 05/30/17 Ibuprofen [Motrin] 600 mg PO TID #30 tab 05/30/17 Tramadol HCl 50 mg PO Q6H PRN #15 tablet 05/30/17 - Allergies Allergies/Adverse Reactions: Allergies Allergy/AdvReac Type Severity Reaction Status Date / Time cefaclor [From [facility]] Allergy Rash Verified 05/30/17 18:54 metformin Allergy Hives Verified 05/30/17 18:54 Penicillins Allergy Rash Verified 05/30/17 18:54 risperidone [From Risperdal] Allergy Unknown Verified 05/30/17 18:54 - Social History Does the pt smoke?: Yes Smoking Status: Current every day smoker Does the pt drink ETOH?: Yes Does the pt have substance abuse?: No - Immunizations Immunizations are current?: Yes - POLST Patient has POLST: No PD ED PE NORMAL - Vitals Vital signs reviewed: Yes - General General: 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, No acute distress, Well developed/nourished - Derm Derm: Normal color, Warm and dry, No rash - Extremities Extremities: No calf tenderness / cord, Other (left knee with marked tnederness inferior to patella without redness swelling nor effusion. ) - Neuro Neuro: 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, No motor deficit, No sensory deficit, Other ( paina t knee with extension. ) Results - Vitals Vitals: Oxygen O2 Source Room air - Rads (name of study) left knee Radiology: Prelim report reviewed, EMP read contemporaneously (no fractures nor effusion) PD MEDICAL DECISION MAKING - ED course Complexity details: considered differential (area of tenderness would suggest some patellar tendonitis. ), d/w patient Departure - Departure Disposition: 01 Home, Self Care Clinical Impression: Contusion of knee, left Qualifiers: Encounter type: initial encounter Qualified Code(s): S80.02XA - Contusion of left knee, initial encounter Patellar tendonitis Qualifiers: Laterality: left Qualified Code(s): M76.52 - Patellar tendinitis, left knee Condition: Stable Record reviewed to determine appropriate education?: Yes Instructions: ED Contusion Lower Ext Follow-Up: [facility] [Provider Group] Prescriptions: Ibuprofen [Motrin] 600 mg PO TID #30 tab Tramadol HCl 50 mg PO Q6H PRN #15 tablet PRN Reason: Pain Comments: Limited range of motion and walking and no kneeling on the left knee for 3 or 4 days. Off work tomorrow due to the injury. Ibuprofen 3 times a day for the next 5-7 days. Add Tylenol and/or tramadol if needed for pain. Follow-up with your primary care or orthopedics if not improved over the next 3-5 days. Discharge Date/Time: 05/30/17 21:02
[2017-05-30] MEDS ORDERED: IBUPROFEN 800 MG TABLET PO STA (20:15)
[2017-05-30] MEDS ORDERED: traMADol 50 MG TABLET PO STA (20:15)
--- NOTE | 2017-05-30 20:52 | XRAY Report ---
EXAM: LEFT KNEE RADIOGRAPHY EXAM DATE: 05/30/2017 08:41 PM. CLINICAL HISTORY: Struck anterior knee yesterday with local pain. COMPARISON: None. TECHNIQUE: 3 views. FINDINGS: Bones: No fracture or focal bony lesion. Joints: No evidence of dislocation. There may be a small suprapatellar joint effusion. Soft Tissues: No unexpected soft tissue findings. IMPRESSION: No evidence of fracture or dislocation. [facility] Referring Provider Line: [phone] SITE ID: [id number]
== END 2017-05-30 21:02 | disposition home or self-care (01) ==
LOC: ED 18:21
DX: S80.02XA Contusion of left knee, initial encounter (principal); M76.52 Patellar tendinitis, left knee; W22.09XA Striking against other stationary object, initial encounter; Y93.H2 Activity, gardening and landscaping; Y92.017 Garden or yard in single-family (private) house as the place of occurrence of the external cause; E11.9 Type 2 diabetes mellitus without complications; F17.200 Nicotine dependence, unspecified, uncomplicated; Z79.4 Long term (current) use of insulin
CPT/HCPCS: 73562; 99283; A9270

== ENCOUNTER 2017-06-07 22:04 | Outpatient (CLI) | payer MEDICAID | END 2017-06-07 22:05 | disposition EMS.NT | LOC: EMS 22:04 | PROVIDERS: ATTEND Surgery | DX: R06.02 Shortness of breath (principal) ==

== ENCOUNTER 2017-07-13 11:49 | Emergency (ER) | payer MEDICAID, OTHER ==
[2017-07-13 12:03] VITALS: BP 146/85
== END 2017-07-13 12:28 | disposition left against medical advice (07) ==
LOC: ED 11:49
DX: Z53.21 Procedure and treatment not carried out due to patient leaving prior to being seen by health care provider (principal)

== ENCOUNTER 2017-09-18 10:48 | Emergency (ER) | payer MEDICAID ==
[2017-09-18 10:52] VITALS: BP 128/81
[2017-09-18] MEDS ORDERED: oxyCODONE 5 MG TABLET PO STA (11:16)
[2017-09-18] MEDS ORDERED: LIDOCAINE PATCH 5% TOP PRN (11:16)
[2017-09-18] MEDS ORDERED: CYCLOBENZAPRINE 10 MG TABLET PO STA (11:16)
[2017-09-18] MEDS ORDERED: KETOROLAC 60 MG/2 ML VIAL IM STA (11:16)
--- NOTE | 2017-09-18 11:19 | ED Physician Documentation ---
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 denies: Dysuria, Hesitancy, Unable to Void, Incontinent, Hematuria Musculoskeletal: reports: Back pain Neurologic: denies: Focal weakness, Numbness Endocrine: denies: Easy bruising / bleeding Immunocompromised: denies: Immunocompromised PD PAST MEDICAL HISTORY - Past Medical History Past Medical History: Yes Cardiovascular: None Respiratory: None Endocrine/Autoimmune: Type 2 diabetes Psych: Anxiety - Past Surgical History Past Surgical History: Yes General: Appendectomy - Present Medications Home Medications: Ambulatory Orders Medication Instructions Recorded Confirmed Insulin Degludec [Tresiba 10 unit SQ QPM #1 insuln.pen 02/15/17 05/30/17 Flextouch U-100] Insulin Lispro [Humalog Kwikpen 2 - 4 unit SQ AC #1 insuln.pen 02/15/17 05/30/17 U-100] Cyclobenzaprine [Flexeril] 10 mg PO TID PRN #20 tablet 09/18/17 Ibuprofen [Motrin] 800 mg PO Q8H PRN #30 tablet 09/18/17 Lidocaine Patch 5% [Lidoderm Patch] 1 each TOP DAILY PRN #10 patch 09/18/17 - Allergies Allergies/Adverse Reactions: Allergies Allergy/AdvReac Type Severity Reaction Status Date / Time cefaclor [From Ceclor] Allergy Rash Verified 09/18/17 10:52 metformin Allergy Hives Verified 09/18/17 10:52 Penicillins Allergy Rash Verified 09/18/17 10:52 risperidone [From Risperdal] Allergy Unknown Verified 09/18/17 10:52 - Social History Does the pt smoke?: Yes Smoking Status: Current every day smoker Does the pt drink ETOH?: Yes Does the pt have substance abuse?: No - Immunizations Immunizations are current?: Yes - POLST Patient has POLST: No PD ED PE NORMAL - Vitals Vital signs reviewed: Yes - Neck Neck: Supple, no meningeal sign - Cardiac Cardiac: RRR - Respiratory Respiratory: No respiratory distress, Clear bilaterally - Abdomen Abdomen: Soft, Non tender, Other (no pulsatile mass) - Male Male : Other (right testicle high riding and diff to palpate, left nl lie no mass very TTP as well, no lesions or dc) - Back Back: No spinal TTP, Other (diffuse ,ow back soft tissue TTP and bery limited ROM, prefers to sit hunched over, no focal bony redness swelling warmth of spot TTP) - Derm Derm: Normal color - Neuro Neuro: No motor deficit, No sensory deficit, Other (hip flex knee ext foot dorsi plantar and great toe ext limited by pain but intact, denies saddle anesthesia, no numbness, neg SLR, no clonus) Results - Vitals Vitals: Vital Signs - 24 hr 09/18/17 10:50 Temperature 36.4 C L Heart Rate 99 Respiratory 16 Rate Blood Pressure 128/81 H O2 Saturation 97 Oxygen O2 Source Room air - Labs Labs: Laboratory Tests 09/18/17 11:26 Urine Color YELLOW Urine Clarity CLEAR Urine pH 6.0 Ur Specific [place] 1.025 Urine Protein NEGATIVE Urine Glucose (UA) NEGATIVE Urine Ketones NEGATIVE Urine Occult Blood NEGATIVE Urine Nitrite NEGATIVE Urine Bilirubin NEGATIVE Urine Urobilinogen 0.2 (NORMAL) Ur Leukocyte Esterase NEGATIVE Ur Microscopic Review NOT INDICATED Urine Culture Comments NOT INDICATED - Rads (name of study) testicular sono Radiology: See rad report (sono done by radiologist Dr Henao - good blood flow to both testes at time of exam, mnl R testicle but on L (more painful) hypoechoic and inc blood flow per rad given no dc or urinary sx to suggest epididiymitis this could suggest recent torsion and detorsion) PD MEDICAL DECISION MAKING - ED course ED course: back pain better with meds high riding R testicle and painful L testicle prompted sono which rads feels is suggestive of recent torsion detorsion - good blood flow now though d/w urology Dr Rothman at [facility] and he advises that if good blood flow now no need for emergent intervention, dc with NSAID ice support and follow up urology clinic - if worse / sx return he should go straight to [facility] ED where urology services and surgery are available discussed all this with pt and - Sepsis Event Vital Signs: Vital Signs - 24 hr 09/18/17 10:50 Temperature 36.4 C L Heart Rate 99 Respiratory 16 Rate Blood Pressure 128/81 H O2 Saturation 97 Oxygen O2 Source Room air Departure - Departure Disposition: 01 Home, Self Care Clinical Impression: Testicular pain, left Back pain Qualifiers: Back pain location: low back pain Chronicity: acute Back pain laterality: bilateral Sciatica presence: without sciatica Qualified Code(s): M54.5 - Low back pain Condition: Good Instructions: ED Neck Back Pain General Follow-Up: Indra Rothman MD [Physician No Access] - Tomorrow (call to schedule) Prescriptions: Cyclobenzaprine [Flexeril] 10 mg PO TID PRN #20 tablet PRN Reason: Spasms Ibuprofen [Motrin] 800 mg PO Q8H PRN #30 tablet PRN Reason: Pain Lidocaine Patch 5% [Lidoderm Patch] 1 each TOP DAILY PRN #10 patch PRN Reason: Pain Comments: For the back pain I have prescribed motrin, a muscle relaxant and lidocaine patches. Rest as much as possible No lifting, shoveling, using the pick ax etc for a week Because of the testicle pain we got an ultrasound and the results were concerning for having had a period of time earlier today where the testicle was not getting adequate blood flow. There is blood flow again now and no damage has been done. But it could happen again I spoke to the urologist Dr Rothman at [facility] and he would like to see you in clinic - call to schedule If the severe testicle pain occurs again, that could mean blood flow has been lost again. This is an emergency and you only have a few hours before the testicle can be permanently damaged or even from lack of blood flow. So you need to go straight to the [facility] ED where urology services are available. If you cannot get to [facility] you can come to the [facility] ER but then we will need to transfer you and that could delay you getting surgery done in time Forms: Activity restrictions
[2017-09-18 12:02] LABS: BILIRUBIN,URINE NEGATIVE (NEGATIVE); GLUCOSE, URINE (UA) NEGATIVE (NEGATIVE); KETONES,URINE (UA) NEGATIVE (NEGATIVE); LEUKOCYTE ESTERASE, URINE NEGATIVE (NEGATIVE); NITRITE,URINE NEGATIVE (NEGATIVE); OCCULT BLOOD,URINE NEGATIVE (NEGATIVE); PROTEIN,URINE NEGATIVE (NEGATIVE); UROBILINOGEN,URINE 0.2 (NORMAL) E.U./dL (NORMAL)
[2017-09-18 12:06] LABS: CLARITY,URINE CLEAR (CLEAR)
--- NOTE | 2017-09-18 12:38 | Ultrasound Report ---
Procedure Date: 09/18/2017 Accession Number: [id number] / [id number] Procedure: US - Testicle w/Doppler CPT Code: FULL RESULT: EXAM: Testicle w/Doppler DATE: 09/18/2017 12:30 PM CLINICAL HISTORY: testiclar pain, high riding right testicle COMPARISON: None. TECHNIQUE: Real-time scanning was performed with static images obtained, including color-flow. FINDINGS: Right: Testis: 4.7 x 2.7 x 3.1 cm. Normal size and echotexture. No mass, calcification, or abnormal blood flow. Epididymis: 1.4 x 0.6 x 1.6 cm. Normal size and echotexture. No mass or abnormal blood flow. Hydrocele: Trace Varicocele: None. Left: Testis: 5.3 x 3.0 x 3.6 cm. Relatively hypoechoic with mildly coarsened echotexture and increased blood flow on comparative color Doppler. Epididymis: 1.4 x 0.8 x 1.3 cm. Normal size and echotexture. No mass or abnormal blood flow. Hydrocele: Trace Varicocele: None. IMPRESSION: In the setting of acute onset left testicular pain without subjective fever or urinary symptoms, findings are concerning for torsion/de-torsion of the left testicle. Left epididymoorchitis can sonographically have the same appearance. There is good blood flow to both testicles at the time of examination. RADIA
== END 2017-09-18 13:25 | disposition home or self-care (01) ==
LOC: ED 10:48
DX: N50.812 Left testicular pain (principal); M54.5 Low back pain; Q53.13 Unilateral high scrotal testis; E11.9 Type 2 diabetes mellitus without complications; Z79.4 Long term (current) use of insulin; F17.200 Nicotine dependence, unspecified, uncomplicated
CPT/HCPCS: 76870; 81003; 93975; 96372; 99283; A9270; 81001; 87086

== ENCOUNTER 2017-09-22 14:38 | Outpatient (CLI) | payer MEDICAID ==
[2017-09-22 18:57] LABS: BASOPHILS # (AUTO) 0.1 10^3/uL (0.0-0.1); EOSINOPHILS # (AUTO) 0.2 10^3/uL (0.0-0.7); EOSINOPHILS % (AUTO) 3.3 %; HGB - HEMOGLOBIN 16.3 g/dL (14.0-18.0); LYMPHOCYTES # (AUTO) 1.8 10^3/uL (1.5-3.5); LYMPHOCYTES % (AUTO) 26.8 %; MEAN CORPUSCULAR HEMOGLOBIN 31.8 pg (27.0-31.0); MEAN CORPUSCULAR HGB CONC 33.2 g/dL (32.0-36.0); MEAN CORPUSCULAR VOLUME 95.9 fL (80.0-94.0); MEAN PLATELET VOLUME 9.1 fL (7.4-11.4); MONOCYTES # (AUTO) 0.7 10^3/uL (0.0-1.0); NEUTROPHILS # (AUTO) 3.8 10^3/uL (1.5-6.6); NEUTROPHILS % (AUTO) 57.9 %; PLT - PLATELET COUNT 264 10^3/uL (130-450); RED BLOOD COUNT 5.13 10^6/uL (4.70-6.10); RED CELL DISTRIBUTION WIDTH 14.3 % (12.0-15.0); WHITE BLOOD COUNT 6.6 x10^3/uL (4.8-10.8)
[2017-09-22 19:46] LABS: ALBUMIN 4.8 g/dL (3.2-5.5); ALBUMIN/GLOBULIN RATIO 1.5 (1.0-2.2); ALKALINE PHOSPHATASE 57 IU/L (42-121); ALT ALANINE AMINOTRANSFERASE 46 IU/L (10-60); AST ASPARTATE AMINOTRANSFERASE 27 IU/L (10-42); BILIRUBIN,TOTAL 0.9 mg/dL (0.2-1.0); BUN - BLOOD UREA NITROGEN 15 mg/dL (6-20); CALCIUM 9.9 mg/dL (8.5-10.3); CARBON DIOXIDE - CO2 31 mmol/L (21-32); CHLORIDE 100 mmol/L (101-111); CHOLESTEROL 169 mg/dL; CREATININE 0.9 mg/dL (0.6-1.2); GFR - MDRD 98 (>89); GLUCOSE 165 mg/dL (70-100); HDL CHOLESTEROL 57 mg/dL; LDL CHOLESTEROL,CALCULATED 95 mg/dL; LDL/HDL RATIO 1.7 (<3.6); SODIUM 138 mmol/L (135-145); VLDL CHOLESTEROL 17 mg/dL
[2017-09-22 20:34] LABS: HB2 TOTAL 17.8 g/dL; HEMOGLOBIN A1C 1.06 g/dL; HEMOGLOBIN A1C % 7.6 % (4.6-6.2)
== END 2017-09-22 14:39 | disposition home or self-care (01) ==
LOC: LAB.N 14:38
PROVIDERS: ATTEND Nurse Practitioner
DX: E11.9 Type 2 diabetes mellitus without complications (principal); I10 Essential (primary) hypertension
CPT/HCPCS: 36415; 80053; 80061; 82043; 82306; 83036; 83721; 84443; 85025

== ENCOUNTER 2018-01-02 11:32 | Outpatient (CLI) | payer MEDICAID ==
[2018-01-02 18:49] LABS: LITHIUM < 0.05 mmol/L
== END 2018-01-02 11:33 | disposition home or self-care (01) ==
LOC: LAB.N 11:32
PROVIDERS: ATTEND Nurse Practitioner
DX: Z79.899 Other long term (current) drug therapy (principal)
CPT/HCPCS: 36415; 80178

== ENCOUNTER 2018-01-05 08:00 | Outpatient (CLI) | payer MEDICAID ==
[2018-01-05 19:29] LABS: LITHIUM < 0.05 mmol/L
== END 2018-01-05 08:01 | disposition home or self-care (01) ==
LOC: LAB.N 08:00
PROVIDERS: ATTEND Nurse Practitioner
DX: Z79.899 Other long term (current) drug therapy (principal)
CPT/HCPCS: 36415; 80178

== ENCOUNTER → 2018-01-08 | Outpatient (CLI) | payer MEDICAID | LOC: RT.N 17:18 | PROVIDERS: ATTEND Nurse Practitioner | DX: R07.9 Chest pain, unspecified (principal) | CPT/HCPCS: 93005 ==

== ENCOUNTER 2018-01-29 08:00 | Outpatient (CLI) | payer MEDICAID ==
[2018-01-29 18:58] LABS: HB2 TOTAL 16.6 g/dL; HEMOGLOBIN A1C 1.08 g/dL; HEMOGLOBIN A1C % 8.1 % (4.6-6.2)
== END 2018-01-29 23:59 | disposition home or self-care (01) ==
LOC: LAB.N 08:00
PROVIDERS: ATTEND Nurse Practitioner
DX: E11.9 Type 2 diabetes mellitus without complications (principal)
CPT/HCPCS: 36415; 83036

== ENCOUNTER 2018-03-12 13:45 | Outpatient (CLI) | payer MEDICAID | END 2018-03-12 13:46 | disposition home or self-care (01) | LOC: LAB.R 13:45 | PROVIDERS: ATTEND Nurse Practitioner | DX: R19.7 Diarrhea, unspecified (principal) | CPT/HCPCS: 82274; 87045; 87046; 87177; 87209 ==

== ENCOUNTER 2018-04-04 17:50 | Emergency (ER) | payer MEDICAID ==
[2018-04-04] MEDS ORDERED: CLINDAMYCIN 150 MG CAPSULE PO STA (18:14)
[2018-04-04] MEDS ORDERED: oxyCODONE 5 MG TABLET PO STA (18:14)
--- NOTE | 2018-04-04 18:17 | ED Physician Documentation ---
History of Present Illness - Stated complaint Stated Complaint: TOE PX - History obtained from History obtained from: Patient, Family - History of Present Illness Pain level max: 10 Pain level now: 10 - Additonal information Additional information: 32-year-old male with an ongoing right great toe ingrown toenail. Saw his PCP yesterday who removed a portion of the nail, increasing pain today. Unable to walk. Not relieved with Motrin. No fevers. No vomiting. Worse with movement. Nothing makes it better Review of Systems Constitutional: denies: Fever, Chills Cardiac: denies: Chest pain / pressure Respiratory: denies: Cough GI: denies: Abdominal Pain, Nausea, Vomiting, Diarrhea Skin: denies: Rash Musculoskeletal: denies: Neck pain, Back pain Neurologic: denies: Headache PD PAST MEDICAL HISTORY - Past Medical History Cardiovascular: None Respiratory: None Endocrine/Autoimmune: Type 2 diabetes Psych: Anxiety - Past Surgical History Past Surgical History: Yes General: Appendectomy - Present Medications Home Medications: Ambulatory Orders Medication Instructions Recorded Confirmed Insulin Degludec [Tresiba 10 unit SQ QPM #1 insuln.pen 02/15/17 05/30/17 Flextouch U-100] Insulin Lispro [Humalog Kwikpen 2 - 4 unit SQ AC #1 insuln.pen 02/15/17 05/30/17 U-100] Cyclobenzaprine [Flexeril] 10 mg PO TID PRN #20 tablet 09/18/17 Ibuprofen [Motrin] 800 mg PO Q8H PRN #30 tablet 09/18/17 Lidocaine Patch 5% [Lidoderm Patch] 1 each TOP DAILY PRN #10 patch 09/18/17 Clindamycin HCl [Clindamycin 300MG 300 mg PO Q6H #28 capsule 04/04/18 CAP] Oxycodone HCl/Acetaminophen 1 - 2 each PO Q6H PRN #14 tablet 04/04/18 [Percocet 5-325 mg Tablet] - Allergies Allergies/Adverse Reactions: Allergies Allergy/AdvReac Type Severity Reaction Status Date / Time cefaclor [From Ceclor] Allergy Rash Verified 04/04/18 18:27 metformin Allergy Hives Verified 04/04/18 18:27 Penicillins Allergy Rash Verified 04/04/18 18:27 risperidone [From Risperdal] Allergy Unknown Verified 04/04/18 18:27 - Social History Does the pt smoke?: Yes Smoking Status: Current every day smoker Does the pt drink ETOH?: Yes Does the pt have substance abuse?: No - Immunizations Immunizations are current?: Yes - POLST Patient has POLST: No PD ED PE NORMAL - Vitals Vital signs reviewed: Yes - General General: 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, No acute distress - Derm Derm: Warm and dry - Extremities Extremities: Other (Right foot - Approximately one quarter of the nail of the great toe has been removed. The toe is significantly swollen and erythematous with an erythematous streak going up to the midfoot. No tenderness along the Plantar aspect of the foot.) - Neuro Neuro: 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 Results - Vitals Vitals: Vital Signs - 24 hr 04/04/18 04/04/18 18:12 19:29 Temperature 36.8 C Heart Rate 103 H 85 Respiratory 22 18 Rate Blood Pressure 158/113 H 133/78 H O2 Saturation 100 99 Oxygen O2 Source Room air PD MEDICAL DECISION MAKING - ED course Complexity details: re-evaluated patient, considered differential, d/w patient, d/w family ED course: 32-year-old male with cellulitis of the right great toe extending up the right foot. Patient is well-appearing, nontoxic. Afebrile. He is allergic to penicillin, therefore will prescribe clindamycin. Also given oxycodone and a postoperative shoe. Feels better. Patient and family counseled regarding signs and symptoms for which I believe and urgent re-evaluation would be necessary. Patient with good understanding of and agreement to plan and is comfortable going home at this time This document was made in part using voice recognition software. While efforts are made to proofread this document, sound alike and grammatical errors may occur. Departure - Departure Disposition: 01 Home, Self Care Clinical Impression: Cellulitis of foot, right Condition: Good Instructions: ED Infec Skin Cellulitis Follow-Up: Gabby Layne DNP [Primary Care Provider] - Within 3 Days Prescriptions: Clindamycin HCl [Clindamycin 300MG CAP] 300 mg PO Q6H #28 capsule Oxycodone HCl/Acetaminophen [Percocet 5-325 mg Tablet] 1 - 2 each PO Q6H PRN #14 tablet PRN Reason: pain Comments: Take all antibiotics until gone. Return if you worsen. Do not drink alcohol or drive while on narcotic pain medicine. Note that many narcotic pain relievers also contain tylenol/acetaminophen. Please ensure that your total dose of acetaminophen from all sources does not exceed 3 grams (3000mg) per day. You may constipated on this medication, take a stool softener such as "Colace" twice a day while you are on it. Also recommend a gyrm-jlp-qwhzwew laxative such as senna or MiraLAX any day that you do not have a bowel movement. If you received narcotic pain medication in the emergency department, do not dri ve or operate machinery for the next 24 hours. Discharge Date/Time: 04/04/18 19:31
[2018-04-04 19:30] VITALS: BP 133/78
== END 2018-04-04 19:31 | disposition home or self-care (01) ==
LOC: ED 17:50
DX: L03.115 Cellulitis of right lower limb (principal); E11.9 Type 2 diabetes mellitus without complications; F17.200 Nicotine dependence, unspecified, uncomplicated; Z79.4 Long term (current) use of insulin
CPT/HCPCS: 99283; A9270

== ENCOUNTER 2018-04-07 00:09 | Emergency (ER) | payer MEDICAID ==
[2018-04-07] MEDS ORDERED: LIDOCAINE 2% 10 ML MDV SUBQ STA (01:30)
[2018-04-07] MEDS ORDERED: HYDROcod/ACET 5/325 Prepack 4 PO STA (02:17)
--- NOTE | 2018-04-07 02:20 | ED Physician Documentation ---
History of Present Illness - Stated complaint Stated Complaint: TOE PX - Chief complaint Chief Complaint: Ext Problem - History obtained from History obtained from: Patient - History of Present Illness Timing: Prior to arrival (2 days) Pain level max: 5 Pain level now: 5 Severity Comments: moderate Quality: Sharp Radiates to: Ankle Improved by: nothing Worsened by: nothing Associated symptoms: none - Additonal information Additional information: 33-year-old diabetic male with right great toe pain after having an ingrown toenail removed. Review of Systems Constitutional: reports: Reviewed and negative Eyes: reports: Reviewed and negative Ears: reports: Reviewed and negative Nose: reports: Reviewed and negative Throat: reports: Reviewed and negative Cardiac: reports: Reviewed and negative Respiratory: reports: Reviewed and negative GI: reports: Reviewed and negative : reports: Reviewed and negative Skin: reports: Reviewed and negative Musculoskeletal: reports: Other (Right great toe redness and pain.) Neurologic: reports: Reviewed and negative Psychiatric: reports: Reviewed and negative Endocrine: reports: Reviewed and negative Immunocompromised: reports: Reviewed and negative PD PAST MEDICAL HISTORY - Past Medical History Cardiovascular: None Respiratory: None Neuro: None Endocrine/Autoimmune: Type 2 diabetes GI: None : Other HEENT: None Psych: Anxiety Musculoskeletal: None Derm: None - Past Surgical History Past Surgical History: Yes General: Appendectomy - Present Medications Home Medications: Ambulatory Orders Medication Instructions Recorded Confirmed Insulin Degludec [Tresiba 10 unit SQ QPM #1 insuln.pen 02/15/17 05/30/17 Flextouch U-100] Insulin Lispro [Humalog Kwikpen 2 - 4 unit SQ AC #1 insuln.pen 02/15/17 05/30/17 U-100] Cyclobenzaprine [Flexeril] 10 mg PO TID PRN #20 tablet 09/18/17 Ibuprofen [Motrin] 800 mg PO Q8H PRN #30 tablet 09/18/17 Lidocaine Patch 5% [Lidoderm Patch] 1 each TOP DAILY PRN #10 patch 09/18/17 Clindamycin HCl [Clindamycin 300MG 300 mg PO Q6H #28 capsule 04/04/18 CAP] Oxycodone HCl/Acetaminophen 1 - 2 each PO Q6H PRN #14 tablet 04/04/18 [Percocet 5-325 mg Tablet] - Allergies Allergies/Adverse Reactions: Allergies Allergy/AdvReac Type Severity Reaction Status Date / Time cefaclor [From Ceclor] Allergy Rash Verified 04/04/18 18:27 metformin Allergy Hives Verified 04/04/18 18:27 Penicillins Allergy Rash Verified 04/04/18 18:27 risperidone [From Risperdal] Allergy Unknown Verified 04/04/18 18:27 - Living Situation Living Situation: reports: With family Living Arrangement: reports: At home - Social History Does the pt smoke?: Yes Smoking Status: Current every day smoker Does the pt drink ETOH?: Yes Does the pt have substance abuse?: No - Family History Family history: reports: Other (Reviewed and not pertinent) - Immunizations Immunizations are current?: Yes - POLST Patient has POLST: No PD ED PE NORMAL - Vitals Vital signs reviewed: Yes - General General: 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, No acute distress - HEENT HEENT: PERRL - Neck Neck: Supple, no meningeal sign - Cardiac Cardiac: RRR, No murmur - Respiratory Respiratory: Clear bilaterally - Abdomen Abdomen: Normal bowel sounds, Soft, Non tender, Non distended - Derm Derm: Warm and dry - Extremities Extremities: No deformity, Other (Right great toe with erythema and tenderness, no drainage, no fluctuance, bedside ultrasound shows cobblestoning of the soft tissue with no fluid collection.) - Neuro Neuro: 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 - Psych Psych: Normal mood, Normal affect Results - Vitals Vitals: Vital Signs - 24 hr 04/07/18 02:32 Heart Rate 82 Respiratory 16 Rate Blood Pressure 114/68 O2 Saturation 97 Oxygen O2 Source Room air Procedures - Regional nerve block Nerve block site: Digital - note digit(s) (Right great toe) Right / left: Right Nerve block anesthesia: Lidocaine 2% Nerve block aftercare: Excellent anesthesia, Patient tolerated well, No complications PD MEDICAL DECISION MAKING - ED course Complexity details: considered differential, d/w patient ED course: 33-year-old male with right great toe redness after having an ingrown toenail removed. Patient states the redness has been improving with antibiotics. No evidence of fluid collection on ultrasound. Patient encouraged to continue antibiotics and given short prescription for pain medication. Patient encouraged to follow-up with podiatry. Departure - Departure Disposition: 01 Home, Self Care Clinical Impression: Cellulitis, toe Qualifiers: Laterality: right Qualified Code(s): L03.031 - Cellulitis of right toe Condition: Stable Instructions: Cellulitis Dc Follow-Up: Gabby Layne DNP [Primary Care Provider] - Comments: Follow up with PCP within 24 hours. Return with worsening symptoms. Discharge Date/Time: 04/07/18 02:33
[2018-04-07 02:33] VITALS: BP 114/68
== END 2018-04-07 02:33 | disposition home or self-care (01) ==
LOC: ED 00:09
DX: L03.031 Cellulitis of right toe (principal); G89.18 Other acute postprocedural pain; M79.674 Pain in right toe(s); E11.9 Type 2 diabetes mellitus without complications; Z79.4 Long term (current) use of insulin; F17.200 Nicotine dependence, unspecified, uncomplicated
CPT/HCPCS: 64450; 99282; 99283

== ENCOUNTER 2018-04-10 15:02 | Outpatient (CLI) | payer MEDICAID ==
[2018-04-10 18:51] LABS: BASOPHILS # (AUTO) 0.1 10^3/uL (0.0-0.1); BASOPHILS % (AUTO) 0.9 %; EOSINOPHILS # (AUTO) 0.3 10^3/uL (0.0-0.7); LYMPHOCYTES # (AUTO) 2.2 10^3/uL (1.5-3.5); LYMPHOCYTES % (AUTO) 29.3 %; MEAN CORPUSCULAR HEMOGLOBIN 31.7 pg (27.0-31.0); MEAN CORPUSCULAR HGB CONC 33.2 g/dL (32.0-36.0); MEAN CORPUSCULAR VOLUME 95.6 fL (80.0-94.0); MEAN PLATELET VOLUME 8.8 fL (7.4-11.4); MONOCYTES # (AUTO) 0.9 10^3/uL (0.0-1.0); MONOCYTES % (AUTO) 12.5 %; NEUTROPHILS # (AUTO) 3.9 10^3/uL (1.5-6.6); NEUTROPHILS % (AUTO) 53.3 %; PLT - PLATELET COUNT 297 10^3/uL (130-450); RED BLOOD COUNT 5.03 10^6/uL (4.70-6.10); RED CELL DISTRIBUTION WIDTH 13.4 % (12.0-15.0); WHITE BLOOD COUNT 7.4 x10^3/uL (4.8-10.8)
[2018-04-10 19:23] LABS: ALBUMIN 4.4 g/dL (3.2-5.5); ALBUMIN/GLOBULIN RATIO 1.2 (1.0-2.2); BILIRUBIN,TOTAL 0.8 mg/dL (0.2-1.0); CALCIUM 9.7 mg/dL (8.5-10.3); CREATININE 0.8 mg/dL (0.6-1.2)
== END 2018-04-10 23:59 | disposition home or self-care (01) ==
LOC: LAB.N 15:02
PROVIDERS: ATTEND Nurse Practitioner
DX: L03.039 Cellulitis of unspecified toe (principal)
CPT/HCPCS: 36415; 80053; 85025; 85651; 86140

== ENCOUNTER 2018-05-24 17:49 | Emergency (ER) | payer MEDICAID ==
[2018-05-24] MEDS ORDERED: oxyCODONE 5 MG TABLET PO STA (19:32)
--- NOTE | 2018-05-24 19:34 | ED Physician Documentation ---
History of Present Illness - Stated complaint Stated Complaint: BILAT EAR,THROAT,CHEST PX - Chief complaint Chief Complaint: General - History obtained from History obtained from: Patient, Friend - History of Present Illness Timing: Last night (Sore throat since last night but more jaw pain today that radiates down into the chest. It is a pressure-like ache. He is not short of breath or dizzy with it but just feels generally ill. He denies fevers or myalgias. It does get worse with chewing well. He has not tried anything for it.) Review of Systems Constitutional: reports: Myalgias, Fatigue. denies: Fever Nose: denies: Rhinorrhea / runny nose Throat: reports: Sore throat Cardiac: reports: Chest pain / pressure Respiratory: denies: Dyspnea, Cough GI: denies: Abdominal Pain PD PAST MEDICAL HISTORY - Past Medical History Past Medical History: Yes Cardiovascular: None Respiratory: None Neuro: None Endocrine/Autoimmune: Type 2 diabetes GI: None : Other HEENT: None Psych: Anxiety Musculoskeletal: None Derm: None - Past Surgical History Past Surgical History: Yes General: Appendectomy - Present Medications Home Medications: Ambulatory Orders Medication Instructions Recorded Confirmed Insulin Degludec [Tresiba 10 unit SQ QPM #1 insuln.pen 02/15/17 05/30/17 Flextouch U-100] Insulin Lispro [Humalog Kwikpen 2 - 4 unit SQ AC #1 insuln.pen 02/15/17 05/30/17 U-100] Cyclobenzaprine [Flexeril] 10 mg PO TID PRN #20 tablet 09/18/17 Ibuprofen [Motrin] 800 mg PO Q8H PRN #30 tablet 09/18/17 Lidocaine Patch 5% [Lidoderm Patch] 1 each TOP DAILY PRN #10 patch 09/18/17 Clindamycin HCl [Clindamycin 300MG 300 mg PO Q6H #28 capsule 04/04/18 CAP] Oxycodone HCl/Acetaminophen 1 - 2 each PO Q6H PRN #14 tablet 04/04/18 [Percocet 5-325 mg Tablet] - Allergies Allergies/Adverse Reactions: Allergies Allergy/AdvReac Type Severity Reaction Status Date / Time cefaclor [From [facility]] Allergy Rash Verified 05/24/18 17:55 metformin Allergy Hives Verified 05/24/18 17:55 Penicillins Allergy Rash Verified 05/24/18 17:55 risperidone [From Risperdal] Allergy Unknown Verified 05/24/18 17:55 - Social History Does the pt smoke?: Yes Smoking Status: Current every day smoker Does the pt drink ETOH?: Yes Does the pt have substance abuse?: No - Immunizations Immunizations are current?: Yes - POLST Patient has POLST: No PD ED PE NORMAL - Vitals Vital signs reviewed: Yes - General General: 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, No acute distress - HEENT HEENT: PERRL, EOMI, Other (Some cavities and mildly tender wisdom teeth on the maxilla and mandible, but no obvious culprit lesion to explain his symptoms. The remainder of the oropharynx is normal. He is a supple neck with no adenopathy.) - Cardiac Cardiac: RRR, No murmur - Respiratory Respiratory: No respiratory distress, Clear bilaterally - Abdomen Abdomen: Non tender - Derm Derm: Normal color, Warm and dry, No rash - Extremities Extremities: No edema, No calf tenderness / cord - Neuro Neuro: 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, Normal speech Results - Vitals Vitals: Vital Signs - 24 hr 05/24/18 05/24/18 17:51 20:04 Temperature 36.9 C 37.0 C Heart Rate 94 99 Respiratory 16 16 Rate Blood Pressure 138/81 H 138/81 H O2 Saturation 98 99 Oxygen O2 Source Room air - EKG (time done) 1953 Rate: Rate (enter#) (86) Rhythm: NSR [place]: Normal Intervals: Normal [place] QRS: Normal Ischemia: Normal ST segments Computer interpretation: Agree with computer - Labs Labs: Laboratory Tests 05/24/18 05/24/18 05/24/18 19:32 20:10 20:10 Sodium 137 Potassium 3.4 L Chloride 102 Carbon Dioxide 25 Anion Gap 10.0 BUN 10 Creatinine 0.7 Estimated GFR (MDRD) 131 Glucose 160 H Calcium 9.2 Total Bilirubin 0.7 AST 30 ALT 50 Alkaline Phosphatase 73 Troponin I Total Protein 7.7 Albumin 4.4 Globulin 3.3 Albumin/Globulin Ratio 1.3 Lipase 30 Infectious [place] Assay POSITIVE A Group A Strep Rapid Negative 05/24/18 20:10 Sodium Potassium Chloride Carbon Dioxide Anion Gap BUN Creatinine Estimated GFR (MDRD) Glucose Calcium Total Bilirubin AST ALT Alkaline Phosphatase Troponin I < 0.04 Total Protein Albumin Globulin Albumin/Globulin Ratio Lipase Infectious [place] Assay Group A Strep Rapid - Rads (name of study) 2V CHEST Radiology: EMP read contemporaneously (NORMAL) PD MEDICAL DECISION MAKING - ED course ED course: 33-year-old gentleman with kind of an odd constellation of symptoms with aches, sore throat, jaw pain radiating into the chest. His exam was fairly unremarkable in the long and the short of it is he has mononucleosis. Splenic protection was advised and conservative care. He is diabetic, so steroids were held. Departure - Departure Disposition: Home, Self Care Clinical Impression: Mononucleosis Qualifiers: Infectious mononucleosis etiology: gammaherpesvirus (incl. EBV) Infectious mononucleosis complication: without complication Qualified Code(s): B27.00 - Gammaherpesviral mononucleosis without complication Condition: Good Record reviewed to determine appropriate education?: Yes Instructions: ED Mononucleosis Comments: Call your doctor to arrange a follow-up appointment, make the next available appointment. In the interim, return anytime if worse or if new symptoms develop. 3Your blood pressure was elevated today on check into the emergency department. This does not mean that you have hypertension, it is a common phenomenon to come to the emergency department and have elevated blood pressure. I recommend that you see your primary care physician within the week to have it rechecked when you are feeling better.
--- NOTE | 2018-05-24 20:01 | XRAY Report ---
Reason: chest pain Procedure Date: 05/24/2018 Accession Number: [id number] / [id number] Procedure: XR - Chest 2 View X-Ray CPT Code: 83356 FULL RESULT: EXAM: CHEST RADIOGRAPHY EXAM DATE: 05/24/2018 07:52 PM. CLINICAL HISTORY: Chest pain. COMPARISON: CHEST 2 VIEW PA/LAT 11/10/2016 2:17 AM. TECHNIQUE: 2 views. FINDINGS: Lungs/Pleura: No dense consolidation. No large effusion or pneumothorax. No pulmonary edema. Mediastinum: Heart and mediastinal contours are unremarkable. Other: None. IMPRESSION: No acute radiographic pulmonary abnormalities. RADIA
[2018-05-24 20:28] LABS: BASOPHILS % (AUTO) 0.3 %; EOSINOPHILS # (AUTO) 0.3 10^3/uL (0.0-0.7); EOSINOPHILS % (AUTO) 3.7 %; HGB - HEMOGLOBIN 15.1 g/dL (14.0-18.0); LYMPHOCYTES # (AUTO) 1.3 10^3/uL (1.5-3.5); MEAN CORPUSCULAR HEMOGLOBIN 32.1 pg (27.0-31.0); MEAN CORPUSCULAR HGB CONC 34.2 g/dL (32.0-36.0); MEAN CORPUSCULAR VOLUME 93.8 fL (80.0-94.0); MEAN PLATELET VOLUME 8.7 fL (7.4-11.4); MONOCYTES # (AUTO) 1.1 10^3/uL (0.0-1.0); MONOCYTES % (AUTO) 14.7 %; NEUTROPHILS # (AUTO) 4.8 10^3/uL (1.5-6.6); NEUTROPHILS % (AUTO) 64.3 %; PLT - PLATELET COUNT 263 10^3/uL (130-450); RED BLOOD COUNT 4.71 10^6/uL (4.70-6.10); RED CELL DISTRIBUTION WIDTH 13.6 % (12.0-15.0); WHITE BLOOD COUNT 7.4 x10^3/uL (4.8-10.8)
[2018-05-24 20:50] LABS: ALBUMIN 4.4 g/dL (3.2-5.5); ALBUMIN/GLOBULIN RATIO 1.3 (1.0-2.2); BILIRUBIN,TOTAL 0.7 mg/dL (0.2-1.0); CALCIUM 9.2 mg/dL (8.5-10.3); CREATININE 0.7 mg/dL (0.6-1.2); TOTAL PROTEIN 7.7 g/dL (6.7-8.2)
[2018-05-24 21:17] VITALS: BP 128/86
== END 2018-05-24 21:17 | disposition home or self-care (01) ==
LOC: ED 17:49
DX: B27.00 Gammaherpesviral mononucleosis without complication (principal); K02.9 Dental caries, unspecified; R03.0 Elevated blood-pressure reading, without diagnosis of hypertension; E11.9 Type 2 diabetes mellitus without complications; Z79.4 Long term (current) use of insulin; F17.200 Nicotine dependence, unspecified, uncomplicated
CPT/HCPCS: 36415; 71046; 80053; 83690; 84484; 85025; 86308; 87070; 87430; 93005; 99283; A9270

== ENCOUNTER 2018-06-23 08:00 | Outpatient (CLI) | payer MEDICAID | END 2018-06-23 23:59 | disposition home or self-care (01) | LOC: LAB.R 08:00 | PROVIDERS: ATTEND Nurse Practitioner | DX: L03.039 Cellulitis of unspecified toe (principal) | CPT/HCPCS: 87075; 87205 ==

== ENCOUNTER 2018-10-01 12:52 | Outpatient (CLI) | payer MEDICAID | END 2018-10-01 12:53 | disposition critical access hospital (66) | LOC: EMS 12:52 | PROVIDERS: ATTEND Surgery | DX: H53.8 Other visual disturbances (principal); R20.0 Anesthesia of skin; R06.82 Tachypnea, not elsewhere classified ==

== ENCOUNTER 2018-10-01 13:13 | Emergency (ER) | payer MEDICAID ==
[2018-10-01 13:21] VITALS: BP 131/80
--- NOTE | 2018-10-01 14:32 | ED Physician Documentation ---
History of Present Illness - Stated complaint Stated Complaint: ANXIETY - Chief complaint Chief Complaint: MHE - History obtained from History obtained from: Patient - Additonal information Additional information: The patient is a 33-year-old male who presents complaining of anxiety and insomnia. His symptoms have been progressing over the past 3 days. He reports having stressors with regard to relationship with his significant other, as well as at work. He was having increased anxiety while at work causing his coworkers to call 911. When paramedics arrived they found the patient was hyperve ntilating. He states that he did have tingling in his fingers, but that has since resolved. He has been treated in the past with Zoloft but found that that caused hallucinations, so was discontinued. Medical history is significant for insulin-dependent diabetes and for hypertension. Review of Systems Constitutional: reports: Fatigue. denies: Fever Eyes: denies: Decreased vision Ears: denies: Tinnitus/ringing Nose: denies: Congestion Throat: denies: Sore throat Cardiac: denies: Chest pain / pressure Respiratory: denies: Cough GI: denies: Abdominal Pain, Nausea, Vomiting : denies: Dysuria Skin: denies: Rash Musculoskeletal: denies: Neck pain, Extremity pain Neurologic: denies: Focal weakness, Numbness, Headache Psychiatric: reports: Anxiety, Insomnia PD PAST MEDICAL HISTORY - Past Medical History Cardiovascular: Hypertension Respiratory: None Neuro: None Endocrine/Autoimmune: Type 2 diabetes GI: Ulcers : Other HEENT: None Psych: Anxiety Musculoskeletal: None Derm: None - Past Surgical History Past Surgical History: Yes General: Appendectomy - Present Medications Home Medications: Ambulatory Orders Medication Instructions Recorded Confirmed Insulin Degludec [Tresiba 10 unit SQ QPM #1 insuln.pen 02/15/17 05/30/17 Flextouch U-100] Insulin Lispro [Humalog Kwikpen 2 - 4 unit SQ AC #1 insuln.pen 02/15/17 05/30/17 U-100] Cyclobenzaprine [Flexeril] 10 mg PO TID PRN #20 tablet 09/18/17 Ibuprofen [Motrin] 800 mg PO Q8H PRN #30 tablet 09/18/17 Lidocaine Patch 5% [Lidoderm Patch] 1 each TOP DAILY PRN #10 patch 09/18/17 Clindamycin HCl [Clindamycin 300MG 300 mg PO Q6H #28 capsule 02/23/19 CAP] Oxycodone HCl/Acetaminophen 1 - 2 each PO Q6H PRN #14 tablet 04/04/18 [Percocet 5-325 mg Tablet] Ondansetron Odt [Zofran] 4 mg TL Q6H PRN #10 tablet 09/06/18 oxyCODONE [Roxicodone] 5 - 10 mg PO Q6H PRN #14 tablet 09/06/18 LORazepam [Lorazepam] 1 mg PO ONCE PRN #12 tablet 10/01/18 - Allergies Allergies/Adverse Reactions: Allergies Allergy/AdvReac Type Severity Reaction Status Date / Time cefaclor [From Ceclor] Allergy Rash Verified 10/01/18 13:21 metformin Allergy Hives Verified 10/01/18 13:21 Penicillins Allergy Rash Verified 10/01/18 13:21 risperidone [From Risperdal] Allergy Unknown Verified 10/01/18 13:21 - Social History Does the pt smoke?: Yes Smoking Status: Current every day smoker Does the pt drink ETOH?: Yes Does the pt have substance abuse?: No - Immunizations Immunizations are current?: No Immunizations: TDAP >10years/unknown - POLST Patient has POLST: No PD ED PE NORMAL - Vitals Vital signs reviewed: Yes (Borderline hypertension.) - HEENT HEENT: Atraumatic, PERRL, EOMI, Moist mucous membranes, Pharynx benign - Neck Neck: Supple, no meningeal sign, No adenopathy - Cardiac Cardiac: RRR - Respiratory Respiratory: No respiratory distress, Clear bilaterally - Abdomen Abdomen: Soft, Non tender - Back Back: No CVA TTP - Derm Derm: No rash - Extremities Extremities: No edema, No calf tenderness / cord - Neuro Neuro: 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, No motor deficit, No sensory deficit Results - Vitals Vitals: Oxygen O2 Source Room air PD MEDICAL DECISION MAKING - ED course Complexity details: considered differential, d/w patient ED course: The patient's presentation is most consistent with anxiety with hyperventilation syndrome. His symptoms have resolved by the time of my evaluation in the emergency department. Despite my encouraging the patient to speak with the manager medical affairs regarding the social stressors in his life, he declined. I do not think laboratory evaluation would be of clinical benefit. I discussed with the patient the pathophysiology of his symptoms, symptomatic treatment and outpatient follow-up, as well as potentially worrisome signs or symptoms that should prompt reevaluation in the emergency department. He is being discharged with a prescription for lorazepam, 12 tablets. Departure - Departure Disposition: 01 Home, Self Care Clinical Impression: Hyperventilation syndrome, Anxiety attack Condition: Stable Instructions: ED Stress React, ED Hyperventilation Syndrome Follow-Up: [facility] [Provider Group] Prescriptions: LORazepam [Lorazepam] 1 mg PO ONCE PRN #12 tablet PRN Reason: Anxiety Comments: Try to get adequate sleep and nutrition. Minimize coffee and marni. You can use lorazepam as prescribed if needed for anxiety reaction. Follow-up with your primary physician within 2 weeks if possible. Call to schedule appointment. Return to the emergency department if you develop recurrent anxiety reaction, or otherwise worsening symptoms. Discharge Date/Time: 10/01/18 14:37
== END 2018-10-01 14:37 | disposition home or self-care (01) ==
LOC: ED 13:13
DX: F41.9 Anxiety disorder, unspecified (principal); F45.8 Other somatoform disorders; G47.00 Insomnia, unspecified; I10 Essential (primary) hypertension; E11.9 Type 2 diabetes mellitus without complications; Z79.4 Long term (current) use of insulin; F17.200 Nicotine dependence, unspecified, uncomplicated
CPT/HCPCS: 99283; 99284

== ENCOUNTER 2020-03-02 13:31 | Outpatient (CLI) | payer MEDICAID ==
[2020-03-02 17:58] LABS: BASOPHILS # (AUTO) 0.1 10^3/uL (0.0-0.1); BASOPHILS % (AUTO) 1.6 %; EOSINOPHILS # (AUTO) 0.2 10^3/uL (0.0-0.7); EOSINOPHILS % (AUTO) 3.2 %; HGB - HEMOGLOBIN 16.4 g/dL (14.0-18.0); LYMPHOCYTES # (AUTO) 1.1 10^3/uL (1.5-3.5); LYMPHOCYTES % (AUTO) 21.4 %; MEAN CORPUSCULAR HEMOGLOBIN 31.7 pg (27.0-31.0); MEAN CORPUSCULAR VOLUME 95.9 fL (80.0-94.0); MEAN PLATELET VOLUME 11.2 fL (7.4-11.4); MONOCYTES # (AUTO) 0.6 10^3/uL (0.0-1.0); MONOCYTES % (AUTO) 12.7 %; NEUTROPHILS # (AUTO) 3.1 10^3/uL (1.5-6.6); NEUTROPHILS % (AUTO) 60.7 %; PLT - PLATELET COUNT 246 10^3/uL (130-450); RED BLOOD COUNT 5.18 10^6/uL (4.70-6.10); RED CELL DISTRIBUTION WIDTH 12.3 % (12.0-15.0); WHITE BLOOD COUNT 5.1 x10^3/uL (4.8-10.8)
[2020-03-02 18:21] LABS: BUN - BLOOD UREA NITROGEN 12 mg/dL (6-20); CALCIUM 9.9 mg/dL (8.5-10.3); CARBON DIOXIDE - CO2 29 mmol/L (21-32); CHLORIDE 94 mmol/L (101-111); CHOL/HDL RATIO 5.7 (<5.0); CHOLESTEROL 204 mg/dL; CREATININE 1.1 mg/dL (0.6-1.2); GLUCOSE 357 mg/dL (70-100); HDL CHOLESTEROL 36 mg/dL; LDL CHOLESTEROL,CALCULATED 128 mg/dL; LDL/HDL RATIO 3.6 (<3.6); VLDL CHOLESTEROL 40 mg/dL
[2020-03-02 18:30] LABS: CREATININE,URINE 97.4 mg/dL; MICROALBUM/CREATININE RATIO,UR 46.2 ug/mg (<30.0); MICROALBUMIN,URINE 4.5 mg/dL (0-300.0)
[2020-03-02 20:33] LABS: HEMOGLOBIN A1c% 11.3 % (4.27-6.07)
== END 2020-03-02 13:32 | disposition home or self-care (01) ==
LOC: LAB.N 13:31
PROVIDERS: ATTEND Family Medicine
DX: E11.9 Type 2 diabetes mellitus without complications (principal)
CPT/HCPCS: 36415; 80048; 80061; 82043; 82570; 83036; 83721; 84443; 85025

== ENCOUNTER 2020-03-21 08:00 | Outpatient (CLI) | payer MEDICAID ==
[2020-03-21 18:13] LABS: PT - PROTHROMBIN TIME 11.6 secs (9.9-12.6)
[2020-03-21 19:02] LABS: ALBUMIN 4.5 g/dL (3.2-5.5); BILIRUBIN,DIRECT 0.1 mg/dL (0.1-0.5); BILIRUBIN,TOTAL 0.8 mg/dL (0.2-1.0); MAGNESIUM 1.9 mg/dL (1.7-2.8)
== END 2020-03-21 23:59 | disposition home or self-care (01) ==
LOC: LAB.WCP 08:00
PROVIDERS: ATTEND Family Medicine
DX: R07.9 Chest pain, unspecified (principal); F10.20 Alcohol dependence, uncomplicated
CPT/HCPCS: 36415; 80076; 83735; 84484; 85610

== ENCOUNTER 2020-04-10 07:00 | Outpatient (CLI) | payer MEDICAID ==
[2020-04-21] MEDS ORDERED: IOVERSOL 320 100 ML VIAL IVP ONE (15:08)
== END 2020-04-10 23:59 | disposition home or self-care (01) ==
LOC: DI 07:00
PROVIDERS: ATTEND Family Medicine
DX: Z53.9 Procedure and treatment not carried out, unspecified reason (principal)

== ENCOUNTER 2020-04-21 12:19 | Emergency (ER) | payer MEDICAID ==
--- NOTE | 2020-04-21 12:46 | ED Physician Documentation ---
PD HPI ABD PAIN - Stated complaint Stated Complaint: MALE - Chief complaint Chief Complaint: Abd Pain - History obtained from History obtained from: Patient - Additional information Additional information: 35-year-old gentleman with type 2 diabetes on insulin, remote appendectomy. For the last month or so or even maybe a little longer he has had abdominal discomfort, especially after eating. Is associated with loose irregular stools. May be some mild bloating. He saw his doctor, had liver enzymes done which were normal. Diagnosed with GERD and tried omeprazole for a couple of weeks, it was not helping so subsequently substituted with OTC famotidine, also not helpful.He notes he is under a lot of stress with an upcoming move. Review of Systems Ten Systems: 10 systems reviewed and negative Constitutional: denies: Fever, Chills Cardiac: denies: Chest pain / pressure, Palpitations Respiratory: denies: Dyspnea, Cough GI: reports: Abdominal Pain (mild), Diarrhea : denies: Dysuria, Frequency, Unable to Void PD PAST MEDICAL HISTORY - Past Medical History Cardiovascular: Hypertension Respiratory: None Neuro: None Endocrine/Autoimmune: Type 2 diabetes GI: Ulcers : Other HEENT: None Psych: Anxiety Musculoskeletal: None Derm: None - Past Surgical History Past Surgical History: Yes General: Appendectomy - Present Medications Home Medications: Ambulatory Orders Medication Instructions Recorded Confirmed Cyclobenzaprine [Flexeril] 10 mg PO TID PRN #20 tablet 09/18/17 04/21/20 Lidocaine Patch 5% [Lidoderm Patch] 1 each TOP DAILY PRN #10 patch 09/18/17 04/21/20 oxyCODONE [Roxicodone] 5 - 10 mg PO Q6H PRN #14 tablet 09/06/18 04/21/20 LORazepam [Lorazepam] 1 mg PO ONCE PRN #12 tablet 10/01/18 04/21/20 Dicyclomine [Bentyl] 1 - 2 tab PO QID PRN #20 cap 04/21/20 Insulin Glargine [Lantus Solostar] 35 units SUBQ QPM 04/21/20 04/21/20 Insulin Lispro [Humalog Kwikpen 12 - 16 unit SQ AC 04/21/20 04/21/20 U-100] Liraglutide [Victoza 2-Sandeep] 1.2 units SUBQ DAILY 04/21/20 04/21/20 - Allergies Allergies/Adverse Reactions: Allergies Allergy/AdvReac Type Severity Reaction Status Date / Time cefaclor [From Ceclor] Allergy Rash Verified 04/21/20 12:23 metformin Allergy Hives Verified 04/21/20 12:23 Penicillins Allergy Rash Verified 04/21/20 12:23 risperidone [From Risperdal] Allergy Unknown Verified 04/21/20 12:23 - Social History Does the pt smoke?: Yes Smoking Status: Current every day smoker Does the pt drink ETOH?: Yes Does the pt have substance abuse?: No - Immunizations Immunizations are current?: No Immunizations: TDAP >10years/unknown - POLST Patient has POLST: No PD ED PE NORMAL - Vitals Vital signs reviewed: Yes - General General: 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, No acute distress - HEENT HEENT: PERRL, EOMI - Neck Neck: Supple, no meningeal sign, No bony TTP - Cardiac Cardiac: RRR, No murmur - Respiratory Respiratory: No respiratory distress, Clear bilaterally - Abdomen Abdomen: Normal bowel sounds, Soft, Non tender - Back Back: No CVA TTP, No spinal TTP - Derm Derm: Normal color, Warm and dry - Extremities Extremities: No edema, No calf tenderness / cord - Neuro Neuro: 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, Normal speech Results - Vitals Vitals: Vital Signs - 24 hr 04/21/20 04/21/20 12:26 15:22 Temperature 37.2 C 36.9 C Heart Rate 93 84 Respiratory 19 19 Rate Blood Pressure 137/86 H 123/81 H O2 Saturation 100 100 Oxygen O2 Source Room air - Labs Labs: Laboratory Tests 04/21/20 04/21/20 04/21/20 12:48 12:48 12:48 WBC 6.2 RBC 5.26 Hgb 16.8 Hct 50.2 MCV 95.4 H MCH 31.9 H MCHC 33.5 RDW 12.4 Plt Count 308 MPV 10.1 Neut # (Auto) 4.0 Lymph # (Auto) 1.4 L [place] # (Auto) 0.7 Eos # (Auto) 0.1 Baso # (Auto) 0.1 Absolute Nucleated RBC 0.00 Nucleated RBC % 0.0 Sodium 136 Potassium 3.5 Chloride 97 L Carbon Dioxide 25 Anion Gap 14.0 H BUN 14 Creatinine 1.2 Estimated GFR (MDRD) 69 L Glucose 185 H Calcium 9.9 Total Bilirubin 0.7 AST 47 H ALT 71 H Alkaline Phosphatase 79 Total Protein 8.6 H Albumin 4.8 Globulin 3.8 Albumin/Globulin Ratio 1.3 Lipase 30 Urine Color YELLOW Urine Clarity CLEAR Urine pH 6.0 Ur Specific [place] 1.025 Urine Protein NEGATIVE Urine Glucose (UA) >=1000 H Urine Ketones 15 H Urine Occult Blood NEGATIVE Urine Nitrite NEGATIVE Urine Bilirubin NEGATIVE Urine Urobilinogen 0.2 (NORMAL) Ur Leukocyte Esterase NEGATIVE Ur Microscopic Review NOT INDICATED Urine Culture Comments NOT INDICATED Urine Opiates Screen NEGATIVE Ur Oxycodone Screen NEGATIVE Urine Methadone Screen NEGATIVE Ur Propoxyphene Screen NEGATIVE Ur Barbiturates Screen NEGATIVE Ur Tricyclics Screen NEGATIVE Ur Phencyclidine Scrn NEGATIVE Ur Amphetamine Screen NEGATIVE U Methamphetamines Scrn NEGATIVE U Benzodiazepines Scrn NEGATIVE Urine Cocaine Screen POSITIVE H U Cannabinoids Screen NEGATIVE PD MEDICAL DECISION MAKING - ED course ED course: His symptoms are actually most consistent with IBS, that said we discussed that this is a diagnosis of exclusion and he would need further work-up before this diagnosis is made. Today we will repeat his labs and perform a CT, if that is negative plan to have him follow-up with PCP for consideration for referral for upper and lower endoscopies. 35-year-old gentleman with subacute abdominal pain, benign exam. Now liver enzymes slightly elevated. Discussed the cocaine positive drug screen, he says he had a lapse in judgment the other night. Would like to talk to the protective services social worker about alcohol resources. Departure - Departure Disposition: 01 Home, Self Care Clinical Impression: Abdominal pain Qualifiers: Abdominal location: generalized Qualified Code(s): R10.84 - Generalized abdominal pain Condition: Good Record reviewed to determine appropriate education?: Yes Instructions: ED Abdominal Pain Unkn Cause Male Prescriptions: Dicyclomine [Bentyl] 1 - 2 tab PO QID PRN #20 cap PRN Reason: Abdominal Pain Comments: You were seen today for abdominal pain, as discussed the pattern is most consistent with irritable bowel syndrome, but need to have endoscopies prior to confirming that diagnosis. Abstain from alcohol. Also abstain from drugs. Return for new or worsening symptoms. Follow-up with MARYANN Benitez next week as scheduled.
[2020-04-21 12:56] LABS: MUDS CUTOFF CONCENTRATIONS CUTOFF CONC BELOW:
[2020-04-21 12:58] LABS: BILIRUBIN,URINE NEGATIVE (NEGATIVE); CLARITY,URINE CLEAR (CLEAR); GLUCOSE, URINE (UA) >=1000 mg/dL (NEGATIVE); KETONES,URINE (UA) 15 mg/dL (NEGATIVE); LEUKOCYTE ESTERASE, URINE NEGATIVE (NEGATIVE); NITRITE,URINE NEGATIVE (NEGATIVE); OCCULT BLOOD,URINE NEGATIVE (NEGATIVE); PROTEIN,URINE NEGATIVE (NEGATIVE); UROBILINOGEN,URINE 0.2 (NORMAL) E.U./dL (NORMAL)
[2020-04-21 13:05] LABS: BASOPHILS # (AUTO) 0.1 10^3/uL (0.0-0.1); EOSINOPHILS # (AUTO) 0.1 10^3/uL (0.0-0.7); EOSINOPHILS % (AUTO) 2.1 %; HCT - HEMATOCRIT 50.2 % (42.0-52.0); HGB - HEMOGLOBIN 16.8 g/dL (14.0-18.0); LYMPHOCYTES # (AUTO) 1.4 10^3/uL (1.5-3.5); LYMPHOCYTES % (AUTO) 22.1 %; MEAN CORPUSCULAR HEMOGLOBIN 31.9 pg (27.0-31.0); MEAN CORPUSCULAR HGB CONC 33.5 g/dL (32.0-36.0); MEAN CORPUSCULAR VOLUME 95.4 fL (80.0-94.0); MEAN PLATELET VOLUME 10.1 fL (7.4-11.4); MONOCYTES # (AUTO) 0.7 10^3/uL (0.0-1.0); MONOCYTES % (AUTO) 10.5 %; PLT - PLATELET COUNT 308 10^3/uL (130-450); RED BLOOD COUNT 5.26 10^6/uL (4.70-6.10); RED CELL DISTRIBUTION WIDTH 12.4 % (12.0-15.0); WHITE BLOOD COUNT 6.2 x10^3/uL (4.8-10.8)
[2020-04-21 13:16] LABS: AMPHETAMINE SCREEN,URINE NEGATIVE (NEGATIVE); BARBITURATE SCREEN,UR NEGATIVE (NEGATIVE); BENZODIAZEPINES SCREEN, URINE NEGATIVE (NEGATIVE); COCAINE SCREEN URINE POSITIVE (NEGATIVE); METHADONE SCREEN, URINE NEGATIVE (NEGATIVE); METHAMPHETAMINES SCREEN, URINE NEGATIVE (NEGATIVE); OPIATE SCREEN, URINE NEGATIVE (NEGATIVE); OXYCODONE SCREEN, URINE NEGATIVE (NEGATIVE); PROPOXYPHENE SCREEN, URINE NEGATIVE (NEGATIVE); THC CANNABINOID SCREEN, URINE NEGATIVE (NEGATIVE); TRICYCLIC ANTIDEPRESSANT,URINE NEGATIVE (NEGATIVE)
[2020-04-21 13:18] LABS: ALBUMIN 4.8 g/dL (3.2-5.5); ALBUMIN/GLOBULIN RATIO 1.3 (1.0-2.2); BILIRUBIN,TOTAL 0.7 mg/dL (0.2-1.0); CALCIUM 9.9 mg/dL (8.5-10.3); CREATININE 1.2 mg/dL (0.6-1.2); POTASSIUM 3.5 mmol/L (3.5-5.0); TOTAL PROTEIN 8.6 g/dL (6.7-8.2)
--- NOTE | 2020-04-21 14:24 | CT Report ---
PROCEDURE: Abdomen/Pelvis W INDICATIONS: IV only, gen abd pain CONTRAST: IV CONTRAST: Optiray 320 ml: 100 PO CONTRAST: *NO PO CONTRAST TECHNIQUE: After the administration of intravenous contrast, 5 mm thick sections acquired from the diaphragms to the symphysis. 5 mm thick coronal and sagittal reformats were acquired. For radiation dose reducti on, the following was used: automated exposure control, adjustment of mA and/or kV according to alessandro ent size. COMPARISON: Right upper quadrant ultrasound 09/06/2018. FINDINGS: Image quality: Excellent. ABDOMEN: Lung bases: Left lower lobe 3 mm pulmonary nodule, (4/13). Minimal streaky opacity at the right cardi ophrenic angle. Heart size is normal. Solid organs: Liver is normal in size. Hepatic steatosis. Gallbladder is contracted. Biliary syste m is non dilated. Pancreas enhances normally. No splenomegaly. No adrenal nodules. Platelike left a drenal gland. Solitary right kidney. Normal enhancement of the right kidney. No solid renal mass. Peritoneum and bowel: Stomach is not distended. Bowel loops demonstrate normal wall thickness and ca liber. Appendix is absent. No free fluid or air. Nodes and vessels: No retroperitoneal or mesenteric adenopathy by size criteria. Aorta and inferior vena cava are normal in size. Miscellaneous: Tiny fat-containing periumbilical hernia. PELVIS: Genitourinary: Bladder wall thickness is normal. Miscellaneous: No inguinal hernias or adenopathy. Bones: No suspicious bony lesions. No vertebral body compression fractures. IMPRESSION: 1. No acute abnormality is identified. No free fluid. 2. Solitary right kidney. No hydronephrosis. 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 3. Post appendectomy. 4. Hepatic steatosis. Reviewed by: Marcos Herrera MD on 04/21/2020 2:22 PM PST Approved by: Marcos Herrera MD on 04/21/2020 2:22 PM PST Station ID: [id number]
[2020-04-21] MEDS ORDERED: SODIUM CHLORIDE 0.9% 1,000 ML IV STA (14:36)
[2020-04-21 15:22] VITALS: BP 123/81
[2020-04-21] MEDS ORDERED: IOVERSOL 320 100 ML VIAL IVP ONE (16:03)
== END 2020-04-21 15:46 | disposition home or self-care (01) ==
LOC: ED 12:19
DX: R10.84 Generalized abdominal pain (principal); E11.9 Type 2 diabetes mellitus without complications; Z79.4 Long term (current) use of insulin; F17.200 Nicotine dependence, unspecified, uncomplicated
CPT/HCPCS: 36415; 74177; 80053; 80306; 81003; 83690; 85025; 99284; Q9967; 81001; 87086

== ENCOUNTER 2020-05-08 09:11 | Outpatient (CLI) | payer MEDICAID ==
--- NOTE | 2020-05-08 16:29 | Ultrasound Report ---
PROCEDURE: Abdomen Complete INDICATIONS: ABD PAIN TECHNIQUE: Real-time scanning was performed of the abdominal and retroperitoneal organs, with image documentatio n. COMPARISON: Prior CTs scan dated 04/21/2020.. FINDINGS: Liver: Liver is diffusely increased in echogenicity with mild coarseness of the hepatic parenchyma. No focal liver abnormality seen. Gallbladder: Gallbladder is mildly contracted. No stones in the gallbladder wall is prominent at 3.5 mm which may be related to partially contracted state. No pericholecystic fluid or sonographic Goel sign. Biliary ducts: Intrahepatic bile ducts are non-dilated. Extrahepatic bile duct caliber measures 7.5 mm. Normal is 6-7 mm or less in diameter, or 10 mm or less post-cholecystectomy. Pancreas: Visualized portions of the pancreas are sonographically normal. Spleen: Spleen is mildly enlarged in size at 13.4 cm and homogeneous in echotexture. Kidneys: Left kidney is congenitally absent. Mild hemihypertrophy of the right kidney measuring 13.8 cm in length. No hydronephrosis, nephrolithiasis or renal mass. Aorta: Visualized aorta is normal in caliber at less than 3 cm. Iliacs: Proximal common iliac arteries are normal in caliber at less than 2.5 cm. IVC: Intrahepatic inferior vena cava is patent. Miscellaneous: No free abdominal fluid. IMPRESSION: Increased hepatic echogenicity suggesting hepatic steatosis. Correlate clinically. Mildly contracted appearance of the gallbladder. If indicated, repeat limited gallbladder ultrasound could be performed as the patient has been fasting between 8 and 10 hours. 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 Mild splenomegaly Reviewed by: ZAHIDA Lares on 05/08/2020 4:28 PM PDT Approved by: Anastacio An MD on 05/08/2020 4:28 PM PDT Station ID: [id number]
== END 2020-05-08 09:12 | disposition home or self-care (01) ==
LOC: DI 09:11
PROVIDERS: ATTEND Family Medicine
DX: R93.2 Abnormal findings on diagnostic imaging of liver and biliary tract (principal); R93.3 Abnormal findings on diagnostic imaging of other parts of digestive tract; Q60.0 Renal agenesis, unilateral; N28.81 Hypertrophy of kidney; R16.1 Splenomegaly, not elsewhere classified; R91.8 Other nonspecific abnormal finding of lung field; R59.0 Localized enlarged lymph nodes
CPT/HCPCS: 71260; 76700; Q9967

== ENCOUNTER 2020-10-24 16:53 | Outpatient (CLI) | payer MEDICAID ==
[2020-10-24 20:40] LABS: CALCIUM 10.2 mg/dL (8.5-10.3); CREATININE 0.9 mg/dL (0.6-1.2); POTASSIUM 3.8 mmol/L (3.5-5.0)
[2020-10-24 20:42] LABS: BASOPHILS # (AUTO) 0.1 10^3/uL (0.0-0.1); BASOPHILS % (AUTO) 1.3 %; EOSINOPHILS # (AUTO) 0.3 10^3/uL (0.0-0.7); HCT - HEMATOCRIT 52.4 % (42.0-52.0); HGB - HEMOGLOBIN 18.2 g/dL (14.0-18.0); LYMPHOCYTES % (AUTO) 21.4 %; MEAN CORPUSCULAR HEMOGLOBIN 32.4 pg (27.0-31.0); MEAN CORPUSCULAR HGB CONC 34.7 g/dL (32.0-36.0); MEAN CORPUSCULAR VOLUME 93.2 fL (80.0-94.0); MEAN PLATELET VOLUME 10.9 fL (7.4-11.4); MONOCYTES # (AUTO) 0.8 10^3/uL (0.0-1.0); MONOCYTES % (AUTO) 8.8 %; NEUTROPHILS # (AUTO) 6.1 10^3/uL (1.5-6.6); NEUTROPHILS % (AUTO) 65.2 %; PLT - PLATELET COUNT 345 10^3/uL (130-450); RED BLOOD COUNT 5.62 10^6/uL (4.70-6.10); RED CELL DISTRIBUTION WIDTH 12.3 % (12.0-15.0); WHITE BLOOD COUNT 9.3 x10^3/uL (4.8-10.8)
[2020-10-24 20:53] LABS: CREATININE,URINE 100.6 mg/dL; MICROALBUMIN,URINE 16.6 mg/dL (0-300.0)
[2020-10-24 20:57] LABS: ESTIMATED AVERAGE GLUCOSE 240 mg/dL (70-100)
== END 2020-10-24 23:59 | disposition home or self-care (01) ==
LOC: LAB.N 16:53
PROVIDERS: ATTEND Physician Assistant Medical
DX: E11.9 Type 2 diabetes mellitus without complications (principal)
CPT/HCPCS: 36415; 80048; 82043; 82570; 83036; 85025

== ENCOUNTER 2020-11-18 10:41 | Emergency (ER) | payer MEDICAID ==
[2020-11-18 10:54] VITALS: BP 149/87
--- NOTE | 2020-11-18 11:54 | XRAY Report ---
PROCEDURE: Chest 1 View X-Ray INDICATIONS: Chest Pain TECHNIQUE: One view of the chest was acquired. COMPARISON: 05/24/2018, 10/31/2016, 11/10/2016. Correlation is also made with the chest CT, 05/08/2020. FINDINGS: Surgical changes and devices: None. Lungs and pleura: No pleural effusions or pneumothorax. Lungs are clear. Mediastinum: Mediastinal contours appear normal. Heart size is normal. Bones and chest wall: No suspicious bony lesions. Overlying soft tissues appear unremarkable. IMPRESSION: Portable chest within normal limits. Reviewed by: Alfred Reyes MD on 11/18/2020 10:52 AM GINA Approved by: Alfred Reyes MD on 11/18/2020 10:52 AM GINA Station ID: [id number]
== END 2020-11-18 13:14 | disposition left against medical advice (07) ==
LOC: ED 10:41
DX: Z53.21 Procedure and treatment not carried out due to patient leaving prior to being seen by health care provider (principal)
CPT/HCPCS: 80053; 83690; 84484; 85025; 93005

== ENCOUNTER 2020-11-25 23:14 | Emergency (ER) | payer MEDICAID ==
--- NOTE | 2020-11-25 23:35 | ED Physician Documentation ---
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 He says he felt "wonky", with mild confusion/disorientation, mild dizziness, difficulty mentally concentrating. He was told by his spouse that his arms/hands and legs looked pale. However, he checked his blood sugar and result was 208. He checked a second time with result of 190. His symptoms were improving but were concerning enough that he comes to ED for evaluation. At the time of this evaluation he tells me he no longer has any symptoms Review of Systems Constitutional: denies: Fever, Chills, Sweats Eyes: reports: Reviewed and negative Cardiac: reports: Reviewed and negative Respiratory: reports: Reviewed and negative GI: reports: Reviewed and negative : denies: Dysuria, Frequency Neurologic: reports: Confused. denies: Generalized weakness, Focal weakness, Numbness, Difficulty speaking, Near syncope, Syncope, Headache, Head injury, LOC PD PAST MEDICAL HISTORY - Past Medical History Cardiovascular: Hypertension Respiratory: None Neuro: None Endocrine/Autoimmune: Type 2 diabetes GI: Ulcers : Other HEENT: None Psych: Anxiety Musculoskeletal: None Derm: None - Past Surgical History Past Surgical History: Yes General: Appendectomy - Present Medications Home Medications: Ambulatory Orders Medication Instructions Recorded Confirmed Insulin Glargine [Lantus Solostar] 35 units SUBQ QPM 04/21/20 11/25/20 Liraglutide [Victoza 2-Sandeep] 1.2 units SUBQ DAILY 04/21/20 11/25/20 Insulin Aspart [NovoLOG] 20 - 24 unit SUBQ TIDWM 11/18/20 11/25/20 PARoxetine HCl [Paxil] 20 mg PO DAILY 11/18/20 11/25/20 - Allergies Allergies/Adverse Reactions: Allergies Allergy/AdvReac Type Severity Reaction Status Date / Time cefaclor [From [facility]] Allergy Rash Verified 11/25/20 23:28 metformin Allergy Hives Verified 11/25/20 23:28 Penicillins Allergy Rash Verified 11/25/20 23:28 risperidone [From Risperdal] Allergy Unknown Verified 11/25/20 23:28 - Social History Does the pt smoke?: Yes Smoking Status: Current every day smoker Does the pt drink ETOH?: Yes Does the pt have substance abuse?: No - Immunizations Immunizations are current?: No Immunizations: TDAP >10years/unknown - POLST Patient has POLST: No PD ED PE NORMAL - Vitals Vital signs reviewed: Yes - General General: 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, No acute distress, Well developed/nourished - HEENT HEENT: PERRL, EOMI - Neck Neck: Supple, no meningeal sign - Cardiac Cardiac: RRR, No murmur - Respiratory Respiratory: No respiratory distress, Clear bilaterally - Abdomen Abdomen: Soft, Non tender - Derm Derm: Normal color, Warm and dry - Neuro Neuro: 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, learning design specialist 2-12 intact, No motor deficit, No sensory deficit, Normal speech Eye Opening: Spontaneous Motor: Obeys Commands Verbal: Oriented GCS Score: 15 Results - Vitals Vitals: Vital Signs - 24 hr 11/25/20 11/26/20 11/26/20 23:20 01:28 02:43 Temperature 36.8 C 36.6 C Heart Rate 94 87 87 Respiratory 16 20 20 Rate Blood Pressure 132/88 H 131/85 H 131/85 H O2 Saturation 99 93 Oxygen O2 Source Room air - EKG (time done) No standard instances Rate: Rate (enter#) (87) Rhythm: NSR [place]: LAD Intervals: Normal MS QRS: Normal Ischemia: Normal ST segments Compare to prior EKG: Unchanged from prior EKG (11/18/20) - Labs Labs: Laboratory Tests 11/25/20 11/26/20 11/26/20 23:23 00:10 00:10 WBC 6.9 RBC 4.90 Hgb 15.9 Hct 47.1 MCV 96.1 H MCH 32.4 H MCHC 33.8 RDW 13.3 Plt Count 252 MPV 10.3 Neut # (Auto) 4.1 Lymph # (Auto) 1.8 [place] # (Auto) 0.7 Eos # (Auto) 0.2 Baso # (Auto) 0.1 Absolute Nucleated RBC 0.00 Nucleated RBC % 0.0 Sodium 136 Potassium 3.5 Chloride 100 L Carbon Dioxide 26 Anion Gap 10.0 BUN 15 Creatinine 1.0 Estimated GFR (MDRD) 86 L Glucose 182 H POC Whole Bld Glucose 208 H Calcium 9.6 PD MEDICAL DECISION MAKING - ED course Complexity details: reviewed old records, reviewed results, re-evaluated patient, considered differential, d/w patient ED course: Asymptomatic by the time of this evaluation. He has reassuring test results including initial FSBS in ED of 208, and BMP glucose of 182. On reevaluation , test results d/w patient and he reports that he remains asymptomatic. No etiology for symptoms at this time, encouraged to follow up with his primary care provider for reevaluation, return if symptoms recur. Departure - Departure Disposition: 01 Home, Self Care Clinical Impression: Confusion Condition: Good Instructions: ED Confusion Comments: Your tests tonight are reassuring; they do not show any significant abnormalities (blood sugar was a little high but not to an extent that would cause symptoms), but they also do not provide nor suggest a cause of your symptoms. Follow up with your primary care provider. Discharge Date/Time: 11/26/20 02:35
[2020-11-26 00:17] LABS: BASOPHILS # (AUTO) 0.1 10^3/uL (0.0-0.1); BASOPHILS % (AUTO) 0.9 %; EOSINOPHILS # (AUTO) 0.2 10^3/uL (0.0-0.7); EOSINOPHILS % (AUTO) 2.5 %; HCT - HEMATOCRIT 47.1 % (42.0-52.0); HGB - HEMOGLOBIN 15.9 g/dL (14.0-18.0); LYMPHOCYTES # (AUTO) 1.8 10^3/uL (1.5-3.5); LYMPHOCYTES % (AUTO) 25.8 %; MEAN CORPUSCULAR HEMOGLOBIN 32.4 pg (27.0-31.0); MEAN CORPUSCULAR HGB CONC 33.8 g/dL (32.0-36.0); MEAN CORPUSCULAR VOLUME 96.1 fL (80.0-94.0); MEAN PLATELET VOLUME 10.3 fL (7.4-11.4); MONOCYTES # (AUTO) 0.7 10^3/uL (0.0-1.0); MONOCYTES % (AUTO) 10.4 %; NEUTROPHILS # (AUTO) 4.1 10^3/uL (1.5-6.6); NEUTROPHILS % (AUTO) 60.1 %; PLT - PLATELET COUNT 252 10^3/uL (130-450); RED CELL DISTRIBUTION WIDTH 13.3 % (12.0-15.0); WHITE BLOOD COUNT 6.9 x10^3/uL (4.8-10.8)
[2020-11-26 00:26] LABS: CALCIUM 9.6 mg/dL (8.5-10.3); POTASSIUM 3.5 mmol/L (3.5-5.0)
[2020-11-26 01:29] VITALS: BP 131/85
== END 2020-11-26 02:35 | disposition home or self-care (01) ==
LOC: ED 23:14
DX: R41.0 Disorientation, unspecified (principal); E11.9 Type 2 diabetes mellitus without complications
CPT/HCPCS: 36415; 80048; 85025; 93005; 99283; 99284

== ENCOUNTER 2020-12-18 05:42 | Emergency (ER) | payer MEDICAID ==
[2020-12-18 06:07] LABS: BASOPHILS # (AUTO) 0.1 10^3/uL (0.0-0.1); BASOPHILS % (AUTO) 1.4 %; EOSINOPHILS # (AUTO) 0.2 10^3/uL (0.0-0.7); EOSINOPHILS % (AUTO) 3.4 %; HCT - HEMATOCRIT 47.7 % (42.0-52.0); HGB - HEMOGLOBIN 16.6 g/dL (14.0-18.0); LYMPHOCYTES % (AUTO) 20.4 %; MEAN CORPUSCULAR HEMOGLOBIN 32.5 pg (27.0-31.0); MEAN CORPUSCULAR HGB CONC 34.8 g/dL (32.0-36.0); MEAN CORPUSCULAR VOLUME 93.3 fL (80.0-94.0); MEAN PLATELET VOLUME 10.3 fL (7.4-11.4); MONOCYTES # (AUTO) 0.6 10^3/uL (0.0-1.0); MONOCYTES % (AUTO) 12.1 %; NEUTROPHILS # (AUTO) 3.2 10^3/uL (1.5-6.6); NEUTROPHILS % (AUTO) 62.5 %; PLT - PLATELET COUNT 251 10^3/uL (130-450); RED BLOOD COUNT 5.11 10^6/uL (4.70-6.10); RED CELL DISTRIBUTION WIDTH 12.9 % (12.0-15.0); WHITE BLOOD COUNT 5.1 x10^3/uL (4.8-10.8)
[2020-12-18] MEDS ORDERED: IPRATROPIUM/ALBUTEROL 3 ML NEB INH STA (06:10)
[2020-12-18 06:19] LABS: VBG BASE EXCESS 1.1 mmol/L (-2 - +2); VBG OXYGEN SATURATION 92.6 % (60-80); VBG PCO2 33.7 mmHg (41-51); VBG PH 7.47 (7.31-7.41); VBG PO2 56.5 mmHg (25-47)
[2020-12-18 06:20] LABS: ALBUMIN 4.5 g/dL (3.2-5.5); ALBUMIN/GLOBULIN RATIO 1.4 (1.0-2.2); BILIRUBIN,TOTAL 0.8 mg/dL (0.2-1.0); CALCIUM 9.3 mg/dL (8.5-10.3); CREATININE 0.9 mg/dL (0.6-1.2); POTASSIUM 3.7 mmol/L (3.5-5.0); TOTAL PROTEIN 7.8 g/dL (6.7-8.2)
[2020-12-18] MEDS ORDERED: SODIUM CHLORIDE 0.9% 1,000 ML IV STA (07:26)
[2020-12-18] MEDS ORDERED: ACETAMINOPHEN/CODEINE 300 MG/30 MG TABLET PO STA (07:51)
[2020-12-18 07:55] LABS: CORONAVIRUS 229E-RESP PCR NOT DETECTED; CORONAVIRUS HKU1-RESP PCR NOT DETECTED; CORONAVIRUS NL63-RESP PCR NOT DETECTED; CORONAVIRUS OC43-RESP PCR NOT DETECTED; HUMAN METAPNEUMOVIRUS NOT DETECTED; RHINOVIRUS/ENTEROVIRUS NOT DETECTED; SARS-CoV-2 -RESP PCR PANEL NOT DETECTED
[2020-12-18 07:56] LABS: B. PARAPERTUSSIS- RESP PCR PAN NOT DETECTED; B. PERTUSSIS- RESP PCR PANEL NOT DETECTED; C. PNEUMONIAE- RESP PCR PANEL NOT DETECTED; INFLUENZA A- RESP PCR PANEL NOT DETECTED; INFLUENZA B - RESP PCR PANEL NOT DETECTED; M. PNEUMONIAE- RESP PCR PANEL NOT DETECTED; PARAINFLUENZA VIRUS 1 NOT DETECTED; PARAINFLUENZA VIRUS 2 NOT DETECTED; PARAINFLUENZA VIRUS 3 NOT DETECTED; PARAINFLUENZA VIRUS 4 NOT DETECTED; RSV- RESP PCR PANEL DETECTED
--- NOTE | 2020-12-18 08:28 | ED Physician Documentation ---
History of Present Illness - Stated complaint Stated Complaint: SOA, CHEST PRESSURE - Chief complaint Chief Complaint: Cardiac - History obtained from History obtained from: Patient - Additonal information Additional information: Patient comes emergency department chief complaint of cough. He states this started 2 days ago and was mild but has gotten worse over the last couple days. He states he just has a constant urge to cough and that his throat and airways hurt. No fevers or chills. Minor congestion nasally. Moderate sore throat from coughing. No shortness of breath. No nausea or vomiting. No edema or calf pain. Patient states he has been fully vaccinated for Covid. His roommate is a smoker and was recently admitted to the hospital with pneumonia. Patient is also a smoker. No other complaints at this time. Review of Systems Ten Systems: 10 systems reviewed and negative Constitutional: reports: Reviewed and negative Eyes: reports: Reviewed and negative Ears: reports: Reviewed and negative Nose: reports: Reviewed and negative Throat: reports: Sore throat Cardiac: reports: Reviewed and negative Respiratory: reports: Cough GI: reports: Reviewed and negative : reports: Reviewed and negative Skin: reports: Reviewed and negative Musculoskeletal: reports: Reviewed and negative Neurologic: reports: Reviewed and negative Psychiatric: reports: Reviewed and negative Endocrine: reports: Reviewed and negative Immunocompromised: reports: Reviewed and negative PD PAST MEDICAL HISTORY - Past Medical History Past Medical History: Yes Cardiovascular: Hypertension Respiratory: None Neuro: None Endocrine/Autoimmune: Type 2 diabetes GI: Ulcers : Other HEENT: None Psych: Anxiety Musculoskeletal: None Derm: None - Past Surgical History Past Surgical History: Yes General: Appendectomy - Present Medications Home Medications: Ambulatory Orders Medication Instructions Recorded Confirmed Insulin Glargine [Lantus Solostar] 35 units SUBQ QPM 04/21/20 12/18/20 Liraglutide [Victoza 2-Sandeep] 1.2 units SUBQ DAILY 04/21/20 12/18/20 Insulin Aspart [NovoLOG] 20 - 24 unit SUBQ TIDWM 11/18/20 12/18/20 PARoxetine HCl [Paxil] 20 mg PO DAILY 11/18/20 12/18/20 Acetaminophen with Codeine 12.5 ml PO Q6HR PRN #250 ml 12/18/20 [Acetamin-Codein 300-30 mg/12.5] PARoxetine HCl [Paxil] 20 mg PO DAILY #30 tablet 12/18/20 - Allergies Allergies/Adverse Reactions: Allergies Allergy/AdvReac Type Severity Reaction Status Date / Time cefaclor [From Ceclor] Allergy Rash Verified 12/18/20 06:00 metformin Allergy Hives Verified 12/18/20 06:00 Penicillins Allergy Rash Verified 12/18/20 06:00 risperidone [From Risperdal] Allergy Unknown Verified 12/18/20 06:00 - Social History Does the pt smoke?: Yes Smoking Status: Current every day smoker Does the pt drink ETOH?: Yes Does the pt have substance abuse?: No - Immunizations Immunizations are current?: No Immunizations: TDAP >10years/unknown - POLST Patient has POLST: No PD ED PE NORMAL - Vitals Vital signs reviewed: Yes - General General: 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, No acute distress, Well developed/nourished - HEENT HEENT: Atraumatic, PERRL, EOMI, Moist mucous membranes - Neck Neck: Supple, no meningeal sign - Cardiac Cardiac: No murmur, Strong equal pulses, Other (Tachycardic rate regular rhythm) - Respiratory Respiratory: No respiratory distress, Clear bilaterally, Other (The patient has an intermittent, hacking dry cough.) - Abdomen Abdomen: Soft, Non tender, Other (Moderate obesity) - Derm Derm: Normal color, Warm and dry, No rash - Extremities Extremities: No deformity, No edema, No calf tenderness / cord - Neuro Neuro: 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, cost control supervisor 2-12 intact, Normal speech - Psych Psych: Normal mood, Normal affect Results - Vitals Vitals: Oxygen O2 Source Room air - EKG (time done) 0551 Rate: Rate (enter#) (114) Rhythm: Sinus tachycardia Stella: LAD, Anterior hemiblock Intervals: Normal AR QRS: Low voltage Ischemia: Normal ST segments Compare to prior EKG: Old EKG unavailable Computer interpretation: Agree with computer - Labs Labs: Laboratory Tests 12/18/20 12/18/20 12/18/20 05:58 05:58 05:58 WBC 5.1 RBC 5.11 Hgb 16.6 Hct 47.7 MCV 93.3 MCH 32.5 H MCHC 34.8 RDW 12.9 Plt Count 251 MPV 10.3 Neut # (Auto) 3.2 Lymph # (Auto) 1.0 L [place] # (Auto) 0.6 Eos # (Auto) 0.2 Baso # (Auto) 0.1 Absolute Nucleated RBC 0.00 Nucleated RBC % 0.0 VBG pH VBG pCO2 VBG pO2 VBG HCO3 VBG Total CO2 VBG O2 Saturation VBG Base Excess Sodium 131 L Potassium 3.7 Chloride 93 L Carbon Dioxide 25 Anion Gap 13.0 BUN 13 Creatinine 0.9 Estimated GFR (MDRD) 97 Glucose 365 H POC Whole Bld Glucose Calcium 9.3 Total Bilirubin 0.8 AST 23 ALT 32 Alkaline Phosphatase 103 Troponin I High Sens 6.6 Total Protein 7.8 Albumin 4.5 Globulin 3.3 Albumin/Globulin Ratio 1.4 Lipase 47 Nasal Adenovirus (PCR) Nasal B. parapertussis DNA (PCR) Nasal Coronavir 229E PCR Nasal Coronavir HKU1 PCR Nasal Coronavir NL63 PCR Nasal Coronavir OC43 PCR Nasal Enterovir/Rhinovir PCR Nasal Influenza B PCR Nasal Influenza A PCR Nasal Parainfluen 1 PCR Nasal Parainfluen 2 PCR Nasal Parainfluen 3 PCR Nasal Parainfluen 4 PCR Nasal RSV (PCR) Nasal B.pertussis DNA PCR Nasal C.pneumoniae (PCR) Kem Human Metapneumo PCR Nasal M.pneumoniae (PCR) Nasal SARS-CoV-2 (PCR) 12/18/20 12/18/20 12/18/20 06:14 06:18 06:48 WBC RBC Hgb Hct MCV MCH MCHC RDW Plt Count MPV Neut # (Auto) Lymph # (Auto) [place] # (Auto) Eos # (Auto) Baso # (Auto) Absolute Nucleated RBC Nucleated RBC % VBG pH 7.470 H VBG pCO2 33.7 L VBG pO2 56.5 H VBG HCO3 24.0 VBG Total CO2 25.0 VBG O2 Saturation 92.6 H VBG Base Excess 1.1 Sodium Potassium Chloride Carbon Dioxide Anion Gap BUN Creatinine Estimated GFR (MDRD) Glucose POC Whole Bld Glucose 399 H Calcium Total Bilirubin AST ALT Alkaline Phosphatase Troponin I High Sens Total Protein Albumin Globulin Albumin/Globulin Ratio Lipase Nasal Adenovirus (PCR) NOT DETECTED Nasal B. parapertussis DNA (PCR) NOT DETECTED Nasal Coronavir 229E PCR NOT DETECTED Nasal Coronavir HKU1 PCR NOT DETECTED Nasal Coronavir NL63 PCR NOT DETECTED Nasal Coronavir OC43 PCR NOT DETECTED Nasal Enterovir/Rhinovir PCR NOT DETECTED Nasal Influenza B PCR NOT DETECTED Nasal Influenza A PCR NOT DETECTED Nasal Parainfluen 1 PCR NOT DETECTED Nasal Parainfluen 2 PCR NOT DETECTED Nasal Parainfluen 3 PCR NOT DETECTED Nasal Parainfluen 4 PCR NOT DETECTED Nasal RSV (PCR) DETECTED A Nasal B.pertussis DNA PCR NOT DETECTED Nasal C.pneumoniae (PCR) NOT DETECTED Kem Human Metapneumo PCR NOT DETECTED Nasal M.pneumoniae (PCR) NOT DETECTED Nasal SARS-CoV-2 (PCR) NOT DETECTED - Rads (name of study) CXR Radiology: Final report received, EMP read indepedently, See rad report (neg) PD MEDICAL DECISION MAKING - ED course Complexity details: reviewed results, re-evaluated patient, considered differential, d/w patient ED course: Pt was treated symptomatically and worked up with respiratory PCR and CXR. Pt was found to have RSV without pneumonia. We have discussed home management and the usual indications for return. Departure - Departure Disposition: 01 Home, Self Care Clinical Impression: RSV (respiratory syncytial virus infection) Condition: Stable Instructions: ED Viral Syndrome Prescriptions: Acetaminophen with Codeine [Acetamin-Codein 300-30 mg/12.5] 12.5 ml PO Q6HR PRN #250 ml PRN Reason: Cough PARoxetine HCl [Paxil] 20 mg PO DAILY #30 tablet Comments: Your x-ray and labs look good. Your nasal swab is positive for respiratory syncytial virus, a virus that normally causes a spectrum of cold and upper respiratory symptoms in children. It is rare, but occasionally adults can get this to. Like any virus, your body will have to fight the virus off on its own. In the meantime, you may use the cough syrup prescribed as needed. Discharge Date/Time: 12/18/20 09:45
--- NOTE | 2020-12-18 09:27 | XRAY Report ---
PROCEDURE: Chest 1 View X-Ray INDICATIONS: Chest pain TECHNIQUE: One view of the chest was acquired. COMPARISON: Chest x-ray 11/18/2020 FINDINGS: Surgical changes and devices: None. Lungs and pleura: No pleural effusions or pneumothorax. Lungs are clear. Mediastinum: Mediastinal contours appear normal. Heart size is normal. Bones and chest wall: No suspicious bony lesions. Overlying soft tissues appear unremarkable. IMPRESSION: No acute pulmonary process. Reviewed by: Sara Figueroa MD on 12/18/2020 9:26 AM [facility] Approved by: Sara Figueroa MD on 12/18/2020 9:26 AM [facility] Station ID: [id number]
[2020-12-18 09:45] VITALS: BP 140/79
== END 2020-12-18 09:45 | disposition home or self-care (01) ==
LOC: ED 05:42
DX: J22 Unspecified acute lower respiratory infection (principal); B97.4 Respiratory syncytial virus as the cause of diseases classified elsewhere; F17.200 Nicotine dependence, unspecified, uncomplicated; I10 Essential (primary) hypertension; E11.9 Type 2 diabetes mellitus without complications; Z79.4 Long term (current) use of insulin; R00.0 Tachycardia, unspecified; Z20.822 Contact with and (suspected) exposure to COVID-19
CPT/HCPCS: 0202U; 36415; 71045; 80053; 82803; 83690; 84484; 85025; 93005; 94640; 99284; A9270

== ENCOUNTER 2020-12-20 11:35 | Emergency (ER) | payer MEDICAID ==
[2020-12-20 11:44] VITALS: BP 146/87
[2020-12-20] MEDS ORDERED: ALBUTEROL 1 PUFF INH STA (12:15)
--- NOTE | 2020-12-20 12:20 | ED Physician Documentation ---
History of Present Illness - Stated complaint Stated Complaint: SOA/COUGH - Chief complaint Chief Complaint: Resp - Additonal information Additional information: 35-year-old male returns emergency department for evaluation of throat pain and dyspnea. Seen here 2 days ago with cough congestion low-grade fevers. At that time respiratory PCR was positive for RSV. He was discharged with prescription for codeine cough syrup. He states that the cough has improved but often he feels like his chest will be really wet and rattling unless he coughs up a large amount of phlegm. He has not had any fevers. He has subsequently lost his voice and sounds mildly hoarse. Normal swallow. Tolerating oral secretions. He is requesting a prescription for Symbicort. He is a daily active tobacco user. Denies any history of reactive airway disease asthma or COPD. Review of Systems Constitutional: denies: Fever, Chills Eyes: reports: Reviewed and negative Ears: reports: Reviewed and negative Throat: reports: Sore throat, Other (Dysphonia) Cardiac: reports: Reviewed and negative Respiratory: reports: Dyspnea, Cough. denies: Hemoptysis, Wheezing GI: reports: Reviewed and negative : reports: Reviewed and negative Skin: reports: Reviewed and negative Musculoskeletal: reports: Reviewed and negative PD PAST MEDICAL HISTORY - Past Medical History Past Medical History: Yes Cardiovascular: Hypertension Respiratory: None Neuro: None Endocrine/Autoimmune: Type 2 diabetes GI: Ulcers : Other HEENT: None Psych: Anxiety Musculoskeletal: None Derm: None - Past Surgical History Past Surgical History: Yes General: Appendectomy - Present Medications Home Medications: Ambulatory Orders Medication Instructions Recorded Confirmed Insulin Glargine [Lantus Solostar] 35 units SUBQ QPM 04/21/20 12/18/20 Liraglutide [Victoza 2-Sandeep] 1.2 units SUBQ DAILY 04/21/20 12/18/20 Insulin Aspart [NovoLOG] 20 - 24 unit SUBQ TIDWM 11/18/20 12/18/20 PARoxetine HCl [Paxil] 20 mg PO DAILY 11/18/20 12/18/20 Acetaminophen with Codeine 12.5 ml PO Q6HR PRN #250 ml 12/18/20 [Acetamin-Codein 300-30 mg/12.5] PARoxetine HCl [Paxil] 20 mg PO DAILY #30 tablet 12/18/20 Albuterol Sulf [Ventolin Hfa 1 - 2 puffs INH Q4HR PRN #1 inhaler 12/20/20 Inhaler] - Allergies Allergies/Adverse Reactions: Allergies Allergy/AdvReac Type Severity Reaction Status Date / Time cefaclor [From Ceclor] Allergy Rash Verified 12/20/20 11:44 metformin Allergy Hives Verified 12/20/20 11:44 Penicillins Allergy Rash Verified 12/20/20 11:44 risperidone [From Risperdal] Allergy Unknown Verified 12/20/20 11:44 - Social History Does the pt smoke?: Yes Smoking Status: Current every day smoker Does the pt drink ETOH?: Yes Does the pt have substance abuse?: No - Immunizations Immunizations are current?: No Immunizations: TDAP >10years/unknown - POLST Patient has POLST: No PD ED PE EXPANDED - General General: Alert, No acute distress, Well developed/nourished - HEENT HEENT: Moist mucous membranes, Pharyngeal erythema (Posterior oropharynx erythema. Uvula is midline. No soft palate asymmetry or swelling. 2+ bilaterally enlarged cryptic appearing tonsils.), Dentition normal. No: Swollen tonsils, Tonsillar exudate - Neck Neck: Supple w/out meningeal sx. No: Adenopathy - Cardiac Cardiac: Regular Rate, Radial strong equal, Pedal strong equal, Cap refill < 2 sec. No: Murmur Present - Respiratory Respiratory: Clear to ausultation denice. No: Distress, Labored - Abdomen Abdomen: Normal Bowel sounds. No: Tender to palpation - Derm Derm: Normal color, Warm and dry. No: Rash - Extremities Extremities: Normal. No: Deformity, Tenderness - Neuro Neuro: Alert and Oriented X 3, CNII-XII intact - GCS Verbal: Oriented Results - Vitals Vitals: Vital Signs - 24 hr 12/20/20 12/20/20 11:41 12:43 Temperature 36.2 C L Heart Rate 94 88 Respiratory 16 18 Rate Blood Pressure 146/87 H O2 Saturation 96 Oxygen O2 Source Room air - Rads (name of study) CXR Radiology: Final report received (Subtle diffuse interstitial prominence of bilateral hemothoraces. Findings are favored to represent hypoventilatory changes given the relatively decreased lung volume compared of comparison. No focal airspace disease seen. No pleural effusion or pneumothorax.) PD MEDICAL DECISION MAKING - ED course Complexity details: reviewed results, re-evaluated patient, considered d ifferential, d/w patient ED course: 35-year-old male return to the emergency department for evaluation of his RSV related cough and congestion. Feels like he has a hard time coughing up his secretions. He is on codeine cough syrup. Chest x-ray today suggest low lung volumes but no obvious focal opacity suggesting pneumonia. He is not hypoxic on room air. He was given albuterol here with the respiratory therapist and felt that his dyspnea had improved. Will prescribe albuterol on discharge. Emergent return precautions otherwise discussed. Departure - Departure Disposition: Home, Self Care Clinical Impression: Cough, RSV (respiratory syncytial virus infection) Condition: Stable Record reviewed to determine appropriate education?: Yes Prescriptions: Albuterol Sulf [Ventolin Hfa Inhaler] 1 - 2 puffs INH Q4HR PRN #1 inhaler PRN Reason: Shortness Of Air/Wheezing Comments: Tom the x-ray does not show an obvious pneumonia. Adults that get RSV can often have cough cold and congestion for 7 to 10 days. I do recommend that he continue to use the codeine cough syrup to help reduce the severity of your cough. Medication like Mucinex can help you loosen the secretions and make them easier to cough up. I am prescribing some albuterol which should be used with a spacer. You can use this 2 puffs 4-6 times a day. This will help open up your lungs and reduce the shortness of air. You can expect that you will feel generally sore from coughing. I do recommend Tylenol and ibuprofen for any discomfort. Return to the ER if you develop severe shortness of air, develop chest pain have any fainting episodes or feel that your symptoms are not improving as expected. Your prescription has been electronically transcribed to the [facility] in [place].
[2020-12-20] MEDS ORDERED: DEXAMETHASONE 10 MG/ML VIAL PO STA (12:25)
[2020-12-20] MEDS ORDERED: CHERRY SYRUP 10 ML UDC PO ONE (12:25)
--- NOTE | 2020-12-20 12:36 | XRAY Report ---
PROCEDURE: Chest 1 View X-Ray INDICATIONS: chest pain TECHNIQUE: One view of the chest was acquired. COMPARISON: 11/18/2020 and 12/18/2020 FINDINGS: Surgical changes and devices: None. Lungs and pleura: Lung volumes are decreased compared to prior studies. There is now very subtle dif fuse interstitial prominence which is favored to be related to hypoventilatory changes. No focal cons olidation. No pleural effusions or pneumothorax. Lungs are clear. Mediastinum: Mediastinal contours appear stable. Heart size is stable. Bones and chest wall: No suspicious bony lesions. Overlying soft tissues appear unremarkable. IMPRESSION: Subtle diffuse interstitial prominence of the bilateral hemithoraces. Findings are favored to represe nt hypoventilatory changes given relatively decreased lung volumes compared to comparison studies. No focal airspace disease seen. No pleural effusion or pneumothorax. Early pulmonary edema or infectiou s/inflammatory process may have a similar appearance if clinically appropriate. However, recommend co nfirming by repeat imaging with dedicated upright PA and lateral views of the chest when patient is a ble. Reviewed by: Zeke Obrien MD on 12/20/2020 12:34 PM PST Approved by: Zeke Obrien MD on 12/20/2020 12:34 PM PST Station ID: [id number]
== END 2020-12-20 13:08 | disposition home or self-care (01) ==
LOC: ED 11:35
DX: J22 Unspecified acute lower respiratory infection (principal); B97.4 Respiratory syncytial virus as the cause of diseases classified elsewhere; F17.200 Nicotine dependence, unspecified, uncomplicated; I10 Essential (primary) hypertension; E11.9 Type 2 diabetes mellitus without complications; Z79.4 Long term (current) use of insulin
CPT/HCPCS: 71045; 94640; 94664; 99283; 99284; A9270